=== PATIENT | female | born 1995 | race Caucasian/White ===

== ENCOUNTER 2018-06-12 00:55 | Outpatient (CLI) | payer SELFPAY ==
[2018-06-12 01:39] VITALS: BMI 30.7
--- NOTE | 2018-06-12 01:56 | NURSING ---
Dr Fox aware that pt came in w/ c/o regular contractions, rating 4/10, palpate moderate. Pt reports that she has an US done last night, confirming that baby is in breech position. A c section with dr rasmussen is scheduled for 06/13/18. Orders given to draw no care labs, send a UA, and give pt a 1000cc LR fluid bolus, then recheck vag exam and if unchanged ok to DC home.
--- NOTE | 2018-06-12 02:24 | NURSING ---
this is Gage Juan, their drivers number. pt does not have phone
[2018-06-12] MEDS: Lactated Ringers 1,000 ML 999 ML IV (02:25)
--- NOTE | 2018-06-12 02:33 | NURSING ---
NPC labs drawn on admission with IV start
[2018-06-12 02:50] LABS: Absolute Lymphocyte Count 1.74 X10^3/ul (0.83-4.51); Basophil# 0.03 X10^3/uL; Basophil% 0.4 % (0-1); Eosinophil# 0.05 X10^3/uL; Eosinophils% 0.7 % (0-5); Hemoglobin 11.3 g/dl (12.0-15.0); Lymphocyte # 1.74 X10^3/ul (4.0); Lymphocyte % 23.4 % (19-41); Mean Corp Hgb Conc 33.2 g/gl (32-36); Mean Corpuscular Hgb 27.6 pg (27.0-32.0); Mean Corpuscular Volume 82.9 fL (81-99); Mean Platelet Vol. 10.4 fl (6.2-12.0); Monocyte% 8.1 % (0-10); Neutrophil # 4.97 X10^3/uL (2.7-7.7); Neutrophil % 66.7 % (47-70); POSITIVE COUNT NO; POSITIVE DIFFERENTIAL NO; POSITIVE MORPHOLOGY NO; Platelet Count 153 K/mm3 (150-450); RBC Distribution Width SD 38.1 fl (35.1-43.9); White Blood Count 7.4 K/mm3 (4.4-11.0)
[2018-06-12 02:57] LABS: Color, Urine Yellow (Yellow); Glucose, Dipstick Normal (Normal); Ketone-Dipstick Negative (Negative); Leukocyte Esterase-Dipstick 500 /ul (Negative); Nitrite-Dipstick Negative (Negative); Occult Blood-Urine 50 /ul (Negative); Protein-Dipstick Negative (Negative); Specific Gravity, Urine 1.025 (1.002-1.030); Urine Bilirubin Dipstick Negative (Negative); Urine Clarity Cloudy (Clear); Urine Urobilinogen 1 mg/dl (Normal)
[2018-06-12 02:58] LABS: Squamous Epithelial Cells - UA 5-10 SEEN /hpf (5-10)
[2018-06-12 02:59] LABS: Bacteria 1+ /hpf (None Seen); Mucous, Urine 1+ /hpf (<or=2+); Red Blood Cells-Urine 0-5 SEEN /hpf (0-5); White Blood Cells 25-50 SEEN /hpf (0-5)
[2018-06-12 04:41] LABS: HIV - WCH Non-Reactive (Nonreactive)
[2018-06-12] MEDS: Nalbuphine 10 MG/ML Ampul IV (05:13)
--- NOTE | 2018-06-12 09:03 | OB.TRI.NOTE ---
- Problem List (1) Breech presentation Status: Acute Qualifiers: Fetus number: single or unspecified fetus Qualified Code(s): O32.1XX0 - Maternal care for breech presentation, not applicable or unspecified History of Present Illness Date of Service: 06/12/18 Was patient seen by the physician?: Yes Reason For Visit: R/O LABOR Date of Service: 06/12/18 Final SKYLAR: 06/14/18 Final SKYLAR Source: US <20 weeks Gestational age: 39 Weeks and 5 Days History of Present Illness: Complaints of contractions without signs of SROM. No bleeding. Good movement. Known breach presentation. Allergies No Known Allergies Allergy (Verified 06/12/18 02:31) Laboratory Studies: Laboratory Tests 06/12/18 06/12/18 06/12/18 Range/Units 02:25 02:25 02:25 WBC (4.4-11.0) K/mm3 RBC (4.2-5.4) M/mm3 Hgb (12.0-15.0) g/dl Hct (37-47) % MCV (81-99) fL MCH (27.0-32.0) pg MCHC (32-36) g/gl RDW (11.6-14.6) % RDW Differential (35.1-43.9) fl Plt Count (150-450) K/mm3 MPV (6.2-12.0) fl Immature Gran % (Auto) (0.0-0.9) % Neut % (Auto) (47-70) % Lymph % (Auto) (19-41) % [place] % (Auto) (0-10) % Eos % (Auto) (0-5) % Baso % (Auto) (0-1) % Absolute Neuts (auto) (2.0-7.7) X10^3/uL Absolute Lymphs (auto) (0.83-4.51) X10^3/ul Total Counted Urine Color (Yellow) Urine Clarity (Clear) Urine pH (5.0 - 8.0) Ur Specific [place] (1.002-1.030) Urine Protein (Negative) mg/dl Urine Glucose (UA) (Normal) mg/dl Urine Ketones (Negative) mg/dl Urine Occult Blood (Negative) /ul Urine Nitrite (Negative) Urine Bilirubin (Negative) mg/dL Urine Urobilinogen (Normal) mg/dl Ur Leukocyte Esterase (Negative) /ul Urine RBC (0-5) /hpf Urine WBC (0-5) /hpf Ur Squamous Epith Cells (5-10) /hpf Urine Bacteria (None Seen) /hpf Urine Mucus (<or=2+) /hpf HIV 1&2 Antibody Non-Reactive (Nonreactive) Rubella IgG Antibody 460.0 IU/mL Blood Type A NEGATIVE Antibody Screen NEGATIVE 06/12/18 06/12/18 Range/Units 02:25 02:25 WBC 7.4 (4.4-11.0) K/mm3 RBC 4.10 L (4.2-5.4) M/mm3 Hgb 11.3 L (12.0-15.0) g/dl Hct 34.0 L (37-47) % MCV 82.9 (81-99) fL MCH 27.6 (27.0-32.0) pg MCHC 33.2 (32-36) g/gl RDW 13.0 (11.6-14.6) % RDW Differential 38.1 (35.1-43.9) fl Plt Count 153 (150-450) K/mm3 MPV 10.4 (6.2-12.0) fl Immature Gran % (Auto) 0.700 (0.0-0.9) % Neut % (Auto) 66.7 (47-70) % Lymph % (Auto) 23.4 (19-41) % [place]aine % (Auto) 8.1 (0-10) % Eos % (Auto) 0.7 (0-5) % Baso % (Auto) 0.4 (0-1) % Absolute Neuts (auto) 5.0 (2.0-7.7) X10^3/uL Absolute Lymphs (auto) 1.74 (0.83-4.51) X10^3/ul Total Counted Not Reportable Urine Color Yellow (Yellow) Urine Clarity Cloudy (Clear) Urine pH 6.0 (5.0 - 8.0) Ur Specific [place] 1.025 (1.002-1.030) Urine Protein Negative (Negative) mg/dl Urine Glucose (UA) Normal (Normal) mg/dl Urine Ketones Negative (Negative) mg/dl Urine Occult Blood 50 H (Negative) /ul Urine Nitrite Negative (Negative) Urine Bilirubin Negative (Negative) mg/dL Urine Urobilinogen 1 H (Normal) mg/dl Ur Leukocyte Esterase 500 H (Negative) /ul Urine RBC 0-5 SEEN (0-5) /hpf Urine WBC 25-50 SEEN (0-5) /hpf Ur Squamous Epith Cells 5-10 SEEN (5-10) /hpf Urine Bacteria 1+ (None Seen) /hpf Urine Mucus 1+ (<or=2+) /hpf HIV 1&2 Antibody (Nonreactive) Rubella IgG Antibody IU/mL Blood Type Antibody Screen Physical Exam General: Alert, Oriented x3, Cooperative, No apparent distress Cardiovascular: Regular rate, Regular Rhythm Lungs: Clear to auscultation, Normal air movement Abdomen: Soft, Non Tender, Non-Distended, Gravid, Appropriate for Gestational Age Extremities:: No edema Neurological: Neuro grossly intact Estimated gestational size: Appropriate for gestational size Presentation: Breech Cervix Dilation (cm): 1 Station: -3 Effacement (%): 50 NST - FHR Rate Baby A Baseline: 130s Variability:: Moderate Accelerations:: 15 x 15 Decelerations:: None NST Reactive:: Yes, Appropriate for gestational age FHR Category:: Category I Uterine Activity:: irregular Impression/Plan Term breech presentation but not in active labor. Is scheduled for primary section tomorrow. Given is not in active labor will discharge home and will return tomorrow for planned delivery. Breech confirmed by US today with baby's vertex in right upper fundus. labs done today.
[2018-06-14 08:51] LABS: HEPATITIS B SURFACE AG Negative (Negative); Hep C Antibodies 0.1 s/co ratio (0.0-0.9)
[2018-06-16 23:52] LABS: Rapid Plasmin Reagin (RPR) NONREACTIVE (NONREACTIVE)
--- OUTSIDE RECORDS SUMMARY | 2018-09-14 12:43 | XMS RPT_ITS ---
:1995 Author Organization OHIP Care Team Providers Name Role Phone Ruddy, Antoni Attending Unavailable Marcanthony, Sepideh Admitting Unavailable Marcanthony, Sepideh Attending Unavailable Primay Care Physicia, No Primary Care Unavailable Marcanthony, Sepideh Admitting Unavailable Marcanthony, Sepideh Attending Unavailable Primay Care Physicia, No Primary Care Unavailable Marcanthony, Sepideh Consulting Unavailable Marcanthony, Sepideh Admitting Unavailable Nanda, Aubrie Attending Unavailable Primay Care Physicia, No Primary Care Unavailable Marcanthony, Sepideh Consulting Unavailable Marcanthony, Sepideh Admitting Unavailable Debord, Aubrie Attending Unavailable Primay Care Physicia, No Primary Care Unavailable Marcanthony, Sepideh Consulting Unavailable PROBLEMS PROBLEMS DATE TYPE CONDITION / CODE ATTENDING STATUS SOURCE 06/15/2018 Unknown G89.18 - Other acute Marcanthony, Active [place] postprocedural pain [facility] / G89.18(ICD-10) Hospital Repository PROCEDURES PROCEDURES No Procedure Records FoundRESULTS RESULTS DISCHARGE INSTRUCTION Observed: 06/15/2018 Status: F Source: CORSICANA 8:07 AM REPOSITORY [facility] Medical Records Department [address] [place] [address] Instructions for Home/Discharge Instructions 06/15/18 0806 MR#: [id number] Acct: [id number] Name: MARIA EUGENIA SEYMOUR Rep #: [id number] : 1995 23 From: Aubrie Vee WAISTLINE JOINER LOCKSTITCH-C PCP: Care Physician, No Primary Status: ADM IN Additional Instructions: If you experience any of the following, contact your healthcare provider. * Bleeding that soaks a pad every hour for 2 hours * Fever 100.4 or higher * Unrelieved incision or abdominal pain * Swelling, redness, discharge or bleeding from your incision or episiotomy site * Your incision begins to separate * Problems urinating (including inability to urinate or burning while urinating). * Visual changes * Severe headache * Flu-like symptoms * Pain or redness in one of both of your breasts * Pain, warmth, tenderness or swelling in your legs, especially the calf area * Frequent nausea and vomiting * Symptoms of depression or anxiety If you experience any of the following, call 911 or go to the nearest Emergency Room. * Chest pain * Problems breathing * Seizure activity * Partial or complete paralysis of a body part, slurred speech, weakness or drooping of the face, or a sudden inability to walk or hold your balance Allergies/Adverse Reactions: Allergies No Known Allergies Allergy (Verified 06/12/18 02:31) Medications to take at Discharge Vits [Prenatabs FA ] 1 tab PO DAILY 06/12/18 Naproxen [Naprosyn] 500 mg PO BID PRN PRN #60 tablet 06/15/18 Oxycodone HCl/Acetaminophen [Percocet 5/325] 1 - 2 tablet PO Q4H PRN PRN 3 Days #15 tablet 06/15/18 The following prescriptions were given: Oxycodone HCl/Acetaminophen [Percocet 5/325] 1 - 2 tablet PO Q4H PRN PRN 3 Days #15 tablet PRN Reason: Pain Naproxen [Naprosyn] 500 mg PO BID PRN PRN #60 tablet PRN Reason: Pain Follow-Up: Call to make an appointment with your doctor for an incision check in 1-2 weeks. You will also need a 6 week post- follow up appointment. Test results from this visit will be discussed in further detail at your follow-up appointment, if applicable. Primary Care Physician: Care Physician,No Primary [Primary Care Provider] - 06/15/18 08 <Electronically signed by Aubrie CARVAJAL> Date Aubrie Vee WAISTLINE JOINER LOCKSTITCH-C CC: No Primary Care Physician CBC-COMPLETE BLOOD CNT Collected: 06/14/2018 Status: F Source: NANDO NO DIFF 5:00 AM REPOSITORY Order Comment: Comments: Day #1 Reason for Laboratory Test TYPE CODE TESTS RESULT OUT OF RANGE REFERENCE UNITS LAB L100.1000 4.4-11.0 K/mm3 Normal WBC 7.9 LAB L100.1200 4.2-5.4 M/mm3 Low RBC 3.49 LAB L100.1300 12.0-15.0 g/dl Low HGB 9.5 LAB L100.1400 37-47 % Low HCT 29.2 LAB L100.1500 81-99 fL Normal MCV 83.7 LAB L100.1600 27.0-32.0 pg Normal MCH 27.2 LAB L100.1700 32-36 g/gl Normal MCHC 32.5 LAB L100.1810 11.6-14.6 % Normal RDW CV 13.5 LAB L100.1820 35.1-43.9 fl Normal RDW SD 41.0 LAB L100.1900 150-450 K/mm3 Low PLT 124 LAB L100.2000 6.2-12.0 fl Normal MPV 9.7 Performed By: #### L100.0500 #### [facility] [address] [place], [address] RHOGAM Collected: 06/13/2018 Status: F Source: NANDO 5:10 PM REPOSITORY TYPE CODE TESTS RESULT OUT OF REFERENCE UNITS RANGE LAB U100.2500 [id number] TRANSFUSED PRODUCT: Rho(D) Immune Globulin RhoGam COUNT: 1 Performed By: #### U100.2500 #### [facility] - refer to report for specific site RH NEGATIVE MOM Collected: 06/13/2018 Status: F Source: NANDO WORKUP 8:35 AM REPOSITORY Order Comment: Baby's Full Name Baby Boy Monisha Baby's Bracelet # [id number] Baby's MR # [id number] TYPE CODE TESTS RESULT OUT OF RANGE REFERENCE UNITS LAB B101.0425 A Normal MOM'S ABO NEGATIVE RH LAB B101.0450 Normal MOM'S ABS NEGATIVE LAB B101.0500 NEGATIVE Normal NEGATIVE SCREEN LAB B101.0950 A Normal BABY'S POSITIVE ABO RH LAB B101.1000 NEGATIVE Normal BABY'S NEGATIVE DESTINEE Performed By: #### B101.0300 #### [facility] [address] [place], [address] OPERATIVE REPORT Observed: 06/13/2018 Status: F Source: CORS[place] 4:23 AM REPOSITORY [facility] Medical Records Department [address] [place] [address] Operative Report 06/13/18 0420 MR#: [id number] Acct: [id number] Name: MARIA EUGENIA SEYMOUR Rep #: [id number] : 1995 23 From: Sepideh Trotter MD PCP: Care Physician, No Primary Status: ADM IN Location: [place] [address] Problem List (1) Breech presentation Status: Acute Qualifiers: Report of Operation Date of Procedure: 06/13/18 Pre-Operative Diagnosis: breech ial Post-Operative Diagnosis: same Surgery/Procedure Performed:: ltcs Description of Surgical Findings:: nl uterus infant complete breech human resources officer: Camille Bello Type of Anesthesia:: Spinal Special Medications: none Specimen's removed: male Drains: branham Estimated Blood Loss (mL): 700 Fluids Replaced: crystalloid Description of Procedure: The patient is a 23-year-old at 39 weeks 4 days presented for active labor and breech presentation decision for primary . Spinal anesthesia was placed without difficulty. Branham catheter was placed. The patient was placed in the dorsal supine position with leftward tilt. Patient was prepped and draped in the normal sterile fashion. Pfannenstiel skin incision was made with the scalpel and carried through to the underlying layer of fascia with the scalpel. Fascia was nicked in the midline and the incision extended laterally. The rectus bellies were dissected off superiorly and inferiorly with out complication both sharply and bluntly. The peritoneum was entered digitally. The incision was stretched and a low transverse uterine incision was made with the scalpel. The 's head was delivered atraumatically followed by the anterior and posterior shoulders without complication the rest of the infant delivered. The cord was clamped and cut and the was handed off to awaiting nurse. The placenta was delivered spontaneously immediately following and was noted to be intact and have a three-vessel cord. The uterus was exteriorized cleared of all clots and debris, and the incision was closed in a double layer closure using #1 Monocryl. The uterus was returned to the maternal abdomen and gutters were cleared of all clots and debris. The ovaries and fallopian tubes were noted to be within normal limits. The peritoneum was closed with 3-0 Monocryl in a running fashion. Fascia was closed with 0 PDS in a running fashion. Subcutaneous tissue was copiously irrigated and the skin was closed with 3-0 Monocryl in a subcuticular fashion. Mepilex dressing was applied without complication. Patient was taken to recovery in stable condition. Grafts/Implants Used: none - Complications none - Admit VTE Documentation VTE Present on Admission: No VTE Mechan Device Prophylaxis: SCD's VTE Pharm Prophylaxis ordered?: No 06/13/18 0423 <Electronically signed by Sepideh Trotter MD> Date Sepideh Trotter MD CC: No Primary Care Physician; Sepideh Trotter MD Signed HISTORY AND PHYSICAL Observed: 06/13/2018 Status: F Source: CORS[place]NA EXAM 4:00 AM REPOSITORY [facility] Medical Records Department [address] [place] [address] History and Physical 06/13/18 0358 MR#: [id number] Acct: [id number] Name: MARIA EUGENIA SEYMOUR Rep #: [id number] : 1995 23 From: Sepideh Trotter MD PCP: Care Physician, No Primary Status: ADM IN Y Location: LR326-2 - Problem List (1) Breech presentation Status: Acute Qualifiers: History Date of Admission: 06/13/18 Final SKYLAR: 06/15/18 Final SKYLAR Source: US <20 weeks Gestational age: 39 Weeks and 5 Days History of this : This is a 23 year-old, at 39 weeks gestational age presents IAL breech. she denies any lof admits good fm but had some vb and regular ctx. she has received care by a ground layer in the community- Flor Gates. She denies any complications to the . Allergies No Known Allergies Allergy (Verified 06/12/18 02:31) Home Medications: Home Medications Vits [Prenatabs FA ] 1 tab PO DAILY 06/12/18 Smoking Status: Former smoker Alcohol: None Number of Fetus(es): 1 Heart Tracins History Past Pregnancies: Past Pregnancies Delivery Name GA/Weeks Outcome Route WeiInfant GeLabky LenAnesthesiDelivery Provider FOB Date t [facility] a Location Labs: Course Did the patient receive No care? Labs Blood Type: A RH: NEGATIVE Current Obstetrical History Gestational Diabetes No Incompetent Cervix No Infertility No IUGR No Macrosomia No Hypertension/Pre-eclampsia No Placenta Previa/Abruption No PTL/PROM No Uterine anomaly No Oligohydramnios No Polyhydramnios No Multiple gestation No Past Medical History Asthma No Diabetes No Hypertension No Heart disease No Mitral valve prolapse No Neurologic/Seizure disorder/ No Migraines Kidney disease No Liver disease No Varicosities No Clotting disorders/Hx of DVT No Thyroid Dysfunction No Other medical diseases No Psychiatric disorders No Major trauma No Abnormal PAP smear No Sleep apnea No Mammogram in the last 2 years No Social History Marital Status: Alleged father Pierre Hx Smoking Yes Smoking Status Former smoker How long have you used patient denies substances (years)? Expected Infant Delivery Method: Primary Section, PRAKASH Section Review of Systems Constitutional: Denies: Fever, Malaise Eyes: Denies: Blurred vision, Vision Change HEENT: Denies: Head Aches, Visual Changes Cardiovascular: Denies: Chest Pain, Palpitations Respiratory: Denies: Cough, Shortness of Breath, Wheezing Gastrointestinal: Denies: Abdominal Pain, Diarrhea, Nausea, Vomiting Genitourinary: Denies: Dysuria, Hematuria Musculoskeletal: Denies: Joint Pain, Muscle pain Skin: Denies: Lesions, Rash Neurological: Denies: Blurred vision, Focal weakness, Headaches Psychiatric: Denies: Anxiety, Depression Endocrine: Denies: Heat/ Cold Intolerance Hematologic/ Lymphatic: Denies: Easy Bruising, Easy Bleeding Physical Exam General: Alert, Cooperative, No apparent distress HEENT: Atraumatic, Normocephalic. Negative for: Thyromegaly, Lymphadenopathy Cardiovascular: Regular rate Lungs: Normal air movement Abdomen: Soft, Non Tender, Gravid Neurological: Deep Tendon Reflexes 2+/4 and Symmetrical, Neuro grossly intact. Negative for: Clonus MATERIAL HANDLER 1ST SHIFT: Normal external genitalia. Negative for: Vulvar lesions Estimated gestational size: Appropriate for gestational size Presentation: Breech Cervix Dilation (cm): 4 Station: 0 Effacement (%): 90 Assessment/Plan All Active Problems Breech presentation (Acute) This is a 23 year-old, , at 39 weeks gestational age presents IAL breech presentation plan for LTCS discussed surgical risks including risks of anesthesia, infection, bleeding, injury to bowel, bladder or blood vessels, and patient wishes to proceed with surgery. 06/13/18 0400 <Electronically signed by Sepideh Trotter MD> Date Sepideh Trotter MD Cosigner Signature: Date (if applicable) CC: No Primary Care Physician; Sepideh Trotter MD Signed CBC W/DIFF, AUTOMATED Collected: 06/12/2018 Status: F Source: NANDO 2:25 AM REPOSITORY TYPE CODE TESTS RESULT OUT OF RANGE REFERENCE UNITS LAB L100.1000 4.4-11.0 K/mm3 Normal WBC 7.4 LAB L100.1200 4.2-5.4 M/mm3 Low RBC 4.10 LAB L100.1300 12.0-15.0 g/dl Low HGB 11.3 LAB L100.1400 37-47 % Low HCT 34.0 LAB L100.1500 81-99 fL Normal MCV 82.9 LAB L100.1600 27.0-32.0 pg Normal MCH 27.6 LAB L100.1700 32-36 g/gl Normal MCHC 33.2 LAB L100.1810 11.6-14.6 % Normal RDW CV 13.0 LAB L100.1820 35.1-43.9 fl Normal RDW SD 38.1 LAB L100.1900 150-450 K/mm3 Normal PLT 153 LAB L100.2000 6.2-12.0 fl Normal MPV 10.4 LAB L100.2100 47-70 % Normal NEUT% 66.7 LAB L100.2200 19-41 % Normal LY% 23.4 LAB L100.2300 0-10 % Normal MONO% 8.1 LAB L100.2400 0-5 % Normal EO% 0.7 LAB L100.2500 0-1 % Normal BASO% 0.4 LAB L100.2550 0.0-0.9 % Normal IM GRAN % 0.700 Result Comment: IG% - Immature Granulocytes (promyelocytes, myelocytes and metamyelocytes) > 1% indicates that a LEFT SHIFT is Present. LAB L100.2620 2.0-7.7 X10 3/uL Normal Absolute Neut 5.0 LAB L100.2720 0.83-4.51 X10 3/ul Normal Absolute Lymph 1.74 Performed By: #### L100.0100 #### [facility] [address] [place], [address] URINALYSIS, COMPLETE Collected: 06/12/2018 Status: F Source: [place]ORS[place] 2:25 AM REPOSITORY Order Comment: How was Urine Obtained? CLEAN CATCH TYPE CODE TESTS RESULT OUT OF RANGE REFERENCE UNITS LAB L400.3000 Yellow COLOR Normal Yellow LAB L400.3050 Clear Normal CLARITY Cloudy LAB L400.3200 Normal mg/dl Normal GLUCOSE, UR Normal LAB L400.3300 Negative mg/dL Normal BILIRUBIN URINE Negative LAB L400.3400 Negative mg/dl Normal KETONE UR Negative LAB L400.3465 1.002-1.030 Normal SP.GR. DIPSTX 1.025 LAB L400.3550 5.0 - 8.0 pH UR Normal 6.0 LAB L400.3600 Negative mg/dl PROT Normal DIPSTX Negative LAB L400.3700 Normal mg/dl High 1 UROBILI LAB L400.3750 Negative Normal NITRITE UR Negative LAB L400.3780 Negative /ul High 50 OCCULT BLOOD-UR LAB L400.3800 Negative /ul High LEUK ESTERASE 500 LAB L400.4050 0-5 /hpf WBC Normal 25-50 SEEN LAB L400.4100 0-5 /hpf Normal RBC-UA 0-5 SEEN LAB L400.4150 5-10 /hpf SQUAM Normal EPI 5-10 SEEN LAB L400.4300 None Seen /hpf 1+ Normal BACTERIA LAB L400.4350 <or=2+ /hpf 1+ Normal MUCUS, URINE Performed By: #### L400.0001, L509.4000 #### [facility] [address] [place], [address] RUBELLA IGG Collected: 06/12/2018 Status: F Source: [place] 2:25 AM REPOSITORY TYPE CODE TESTS RESULT OUT OF RANGE REFERENCE UNITS LAB L509.4000 IU/mL Normal Rubella IgG 460.0 Result Comment: Antibody results Interpretation of Immune Status < 5 IU/ml Presumed Non-immune 5 - < 10 IU/ml Equivocal > or = 10 IU/ml Presumed Immune Performed By: #### L400.0001, L509.4000 #### [facility]. [facility] [id number] HIV - [facility] Collected: 06/12/2018 Status: F Source: [place] 2:25 AM REPOSITORY TYPE CODE TESTS RESULT OUT OF RANGE REFERENCE UNITS LAB L3890.6005 Nonreactive Normal HIV - [facility] Non-Reactive Performed By: #### L3890.6005 #### [facility]. [place], [place], [id number] TYPE AND SCREEN Collected: 06/12/2018 Status: F Source: [place] 2:25 AM REPOSITORY Order Comment: Reason for Type AND Screen/Red Cells: ROUTINE TYPE CODE TESTS RESULT OUT OF RANGE REFERENCE UNITS LAB B10.0800 A Normal BLOOD TYPE GEL NEGATIVE LAB B100.4000 Normal Antibody NEGATIVE Screen Performed By: #### B101.7450 #### [facility] [address] [facility] [id number] HEPATITIS B SURFACE Collected: 06/12/2018 Status: F Source: [place] AG 2:25 AM REPOSITORY TYPE CODE TESTS RESULT OUT OF RANGE REFERENCE UNITS LAB L3100.0400 Negative Normal HB Negative SURF AG Result Comment: Performed at: - [facility] [id number] Staging Technician: John Stacy PhD, Phone: [phone] Performed By: #### L3100.0390, L3100.0625 #### [facility] (refer to report for specific site) refer to report for address and phone number HEPATITIS C ANTIBODIES Collected: 06/12/2018 Status: F Source: [place]ORS[place] 2:25 AM REPOSITORY TYPE CODE TESTS RESULT OUT OF RANGE REFERENCE UNITS LAB L3100.0650 0.0-0.9 s/co ratio Normal HEP C AB 0.1 Result Comment: Negative: < 0.8 Indeterminate: 0.8 - 0.9 Positive: > 0.9 The CDC recommends that a positive HCV antibody result be followed up with a HCV Nucleic Acid Amplification test (031464). Performed By: #### L3100.0390, L3100.0625 #### [facility] (refer to report for specific site) refer to report for address and phone number RAPID PLASMIN REAGIN Collected: 06/12/2018 Status: F Source: CORS[place]NA (RPR) 2:25 AM REPOSITORY TYPE CODE TESTS RESULT OUT OF REFERENCE UNITS RANGE LAB L700.5000 NONREACTIVE NONREACTIVE Normal RPR Performed By: #### L700.5000 #### [facility] [address] [place], [address] ALLERGIES ALLERGIES DATE TYPE / CODE NAME / CODE REACTION SEVERITY SOURCE 06/12/2018 Drug No Known Unknown [facility] Allergy/4160 Allergies/F00 Hospital 29427(SNOMED 9071968(RXNOR Repository CT) M) ENCOUNTERS ENCOUNTERS ADMIT/DISCHARGE ACCOUNT ADMITTING ENCOUNTER LOCATION SOURCE NUMBER CLASS 06/13/2018/ [id number] Rose Marie, Inpatient [place] 8 3 Sepideh Encounter [facility] ing:WPRoom: Repository [id number]: 1 06/13/2018 [id number] Rose Marie Ambulatory BMSBuilding:B [place] 1 Sepideh MS.CF.[facility] Repository 06/13/2018 [id number] Rose Marie Ambulatory BMSBuilding:B [place] 5 Sep[place] MS.CF.[facility] Repository 06/13/2018 [id number] Marcjungony, Ambulatory BMSBuilding:B [place] 8 Sep[place]h MS.CF.[facility] Repository 06/12/2018/ [id number] Ambulatory [place] 8 3 [facility] ing:WPOUTRoom Repository : [id number] PAYERS PAYERS ENCOUNTER GUARANTOR PAYER SUBSCRIBER SOURCE 06/13/2018 MARIA EUGENIA W Primary Insurance:[facility] MARIA EUGENIA [place] Nando [id number] SR PACKAGE PLANPolicy GINGERICHDOB: [facility] Number: [id number] [facility] , [place] [address]Eyj: . [id number] Repository (HP) Date:2018-06-13 06/13/2018 Secondary NOT GIVENUNK [place] Insurance:SELF PAY [facility], [place]) Number: Effective Repository Date:2018-06-13 06/13/2018 MARIA EUGENIA Marlena Primary Insurance:[facility] MARIA EUGENIA [place] [id number] SR PACKAGE PLANPolicy GINGERICHDOB: [facility] [address] Number: [id number] [facility] , [place] [address]Nqp: . [id number] Repository (HP) Date:2018-06-13 06/13/2018 Secondary NOT GIVENUNK [place] Insurance:SELF PAY [facility], [place] Number: Effective Repository Date:2018-06-13 06/13/2018 MARIA EUGENIA Mendiola Primary Insurance:[facility] MARIA EUGENIA [place] [id number] SR PACKAGE PLANPolicy GINGERICHDOB: [facility] [address] Number: Effective [id number], [place] [address]Cqy: 0 Date:2018-06-13 Repository (HP) 06/13/2018 Secondary NOT GIVENUNK Nando Insurance:SELF PAY [facility] ([place], [place] Number: Effective Repository Date:2018-06-13 06/13/2018 MARIA EUGENIA Mendiola Primary Insurance:[facility] MARIA EUGENIA [place] [id number] SR PACKAGE PLANPolicy GINGERICHDOB: [facility] [address] Number: [id number] [place], [place] [address]Dmx: . [id number] Repository (HP) Date:2018-06-13 06/13/2018 Secondary NOT GIVENUNK Nando Insurance:SELF PAY [facility] ([place], [place]) Number: Effective Repository Date:2018-06-13 06/12/2018 MARIA EUGENIA Mendiola Primary Insurance:[facility] MARIA EUGENIA [place] Nando [id number] SR PACKAGE PLANPolicy GINGERICHDOB: [place] [id number] Number: Effective [id number] [place], [place] [address]Qjz: 0 Date:2018-06-12 Repository () 06/12/2018 Secondary NOT GIVENUNK Nando Insurance:SELF PAY [facility] ([place], [place]) Number: Effective Repository Date:2018-06-12
== END 2018-06-12 10:25 | disposition home or self-care (01) ==
LOC: WPOUT 01:08 → WP 01:09
PROVIDERS: Visit Provider Obstetrics & Gynecology
DX: O32.1XX0 Maternal care for breech presentation, not applicable or unspecified (principal); Z3A.39 39 weeks gestation of pregnancy
CPT/HCPCS: 96361; 96374; 36415; 59025; 59050; 76815; 81001; 85025; 86592; 86703; 86762; 86803; 86850; 86900; 87340; 99218; J7120; G0378

== ENCOUNTER 2018-06-13 01:25 | Inpatient (IN) | payer SELFPAY ==
[2018-06-12 01:39] VITALS: BMI 30.7
[2018-06-13] VITALS (23 sets, daily range): BP systolic 97–131; BP diastolic 44–81; PULSE 82–109; RESP 12–20; TEMP 36.1–36.9; O2SAT 97–100; BMI 30.7
[2018-06-13] MEDS: Lactated Ringers 1,000 ML 999 ML IV (02:10)
[2018-06-13] MEDS: Lactated Ringers 1,000 ML 150 ML IV (02:41)
[2018-06-13] MEDS: Sodium Citrate/Citric Acid 30 ML UDC PO (02:42)
[2018-06-13] MEDS: Cefazolin 2 GM in 0.9% Normal Saline 100 ML IV (02:50)
[2018-06-13] MEDS: Oxytocin 30 units/NS 500 ml 30 UNITS/500 ML IV.SOLN 167 UNITS IV (03:10)
--- NOTE | 2018-06-13 03:58 | PCM.HP.OB ---
- Problem List (1) Breech presentation Status: Acute Qualifiers: History Date of Admission: 06/13/18 Final SKYLAR: 06/15/18 Final SKYLAR Source: US <20 weeks Gestational age: 39 Weeks and 5 Days History of this : This is a 23 year-old, at 39 weeks gestational age presents IAL breech. she denies any lof admits good fm but had some vb and regular ctx. she has received care by a signs and displays sales representative in the community- Flor Gates. She denies any complications to the . Allergies No Known Allergies Allergy (Verified 06/12/18 02:31) Home Medications: Home Medications Vits [Prenatabs FA ] 1 tab PO DAILY 06/12/18 Smoking Status: Former smoker Alcohol: None Number of Fetus(es): 1 Heart Tracins History Past Pregnancies: Past Pregnancies Delivery Date Name GA/Weeks Outcome Route Weight Infant Gender Labor Length Anesthesia Delivery Location Provider FOB Labs: Course Did the patient receive No care? 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 rhogam Comments: Current Obstetrical History Gestational Diabetes No Incompetent Cervix No Infertility No IUGR No Macrosomia No Hypertension/Pre-eclampsia No Placenta Previa/Abruption No PTL/PROM No Uterine anomaly No Oligohydramnios No Polyhydramnios No Multiple gestation No Past Medical History Asthma No Diabetes No Hypertension No Heart disease No Mitral valve prolapse No Neurologic/Seizure disorder/ No Migraines Kidney disease No Liver disease No Varicosities No Clotting disorders/Hx of DVT No Thyroid Dysfunction No Other medical diseases No Psychiatric disorders No Major trauma No Abnormal PAP smear No Sleep apnea No Mammogram in the last 2 years No Social History Marital Status: Alleged father Pierre Hx Smoking Yes Smoking Status Former smoker How long have you used patient denies substances (years)? Expected Infant Delivery Method: Primary Section, PRAKASH Section Review of Systems Constitutional: Denies: Fever, Malaise Eyes: Denies: Blurred vision, Vision Change HEENT: Denies: Head Aches, Visual Changes Cardiovascular: Denies: Chest Pain, Palpitations Respiratory: Denies: Cough, Shortness of Breath, Wheezing Gastrointestinal: Denies: Abdominal Pain, Diarrhea, Nausea, Vomiting Genitourinary: Denies: Dysuria, Hematuria Musculoskeletal: Denies: Joint Pain, Muscle pain Skin: Denies: Lesions, Rash Neurological: Denies: Blurred vision, Focal weakness, Headaches Psychiatric: Denies: Anxiety, Depression Endocrine: Denies: Heat/ Cold Intolerance Hematologic/ Lymphatic: Denies: Easy Bruising, Easy Bleeding Physical Exam General: Alert, Cooperative, No apparent distress HEENT: Atraumatic, Normocephalic. Negative for: Thyromegaly, Lymphadenopathy Cardiovascular: Regular rate Lungs: Normal air movement Abdomen: Soft, Non Tender, Gravid Neurological: Deep Tendon Reflexes 2+/4 and Symmetrical, Neuro grossly intact. 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 Negative for: Vulvar lesions Estimated gestational size: Appropriate for gestational size Presentation: Breech Cervix Dilation (cm): 4 Station: 0 Effacement (%): 90 Assessment/Plan All Active Problems Breech presentation (Acute) This is a 23 year-old, , at 39 weeks gestational age presents IAL breech presentation plan for LTCS discussed surgical risks including risks of anesthesia, infection, bleeding, injury to bowel, bladder or blood vessels, and patient wishes to proceed with surgery.
--- NOTE | 2018-06-13 04:20 | PCM.OPRPT ---
Problem List (1) Breech presentation Status: Acute Qualifiers: Report of Operation Date of Procedure: 06/13/18 Pre-Operative Diagnosis: breech ial Post-Operative Diagnosis: same Surgery/Procedure Performed:: ltcs Description of Surgical Findings:: nl uterus complete breech lifestyle director: Camille Bello Type of Anesthesia:: Spinal Special Medications: none Specimen's removed: male infant Drains: branham Estimated Blood Loss (mL): 700 Fluids Replaced: crystalloid Description of Procedure: The patient is a 23-year-old at 39 weeks 4 days presented for active labor and breech presentation decision for primary . Spinal anesthesia was placed without difficulty. Branham catheter was placed. The patient was placed in the dorsal supine position with leftward tilt. Patient was prepped and draped in the normal sterile fashion. Pfannenstiel skin incision was made with the scalpel and carried through to the underlying layer of fascia with the scalpel. Fascia was nicked in the midline and the incision extended laterally. The rectus bellies were dissected off superiorly and inferiorly with out complication both sharply and bluntly. The peritoneum was entered digitally. The incision was stretched and a low transverse uterine incision was made with the scalpel. The 's head was delivered atraumatically followed by the anterior and posterior shoulders without complication the rest of the delivered. The cord was clamped and cut and the was handed off to awaiting nurse. The placenta was delivered spontaneously immediately following and was noted to be intact and have a three-vessel cord. The uterus was exteriorized cleared of all clots and debris, and the incision was closed in a double layer closure using #1 Monocryl. The uterus was returned to the maternal abdomen and gutters were cleared of all clots and debris. The ovaries and fallopian tubes were noted to be within normal limits. The peritoneum was closed with 3-0 Monocryl in a running fashion. Fascia was closed with 0 PDS in a running fashion. Subcutaneous tissue was copiously irrigated and the skin was closed with 3-0 Monocryl in a subcuticular fashion. Mepilex dressing was applied without complication. Patient was taken to recovery in stable condition. Grafts/Implants Used: none - Complications none - Admit VTE Documentation VTE Present on Admission: No VTE Mechan Device Prophylaxis: SCD's VTE Pharm Prophylaxis ordered?: No
--- NOTE | 2018-06-13 04:23 | OP.PCM_ITS ---
Problem List (1) Breech presentation Status: Acute Qualifiers: Report of Operation Date of Procedure: 06/13/18 Pre-Operative Diagnosis: breech ial Post-Operative Diagnosis: same Surgery/Procedure Performed:: ltcs Description of Surgical Findings:: nl uterus complete breech launch commander harbor police: Camille Bello Type of Anesthesia:: Spinal Special Medications: none Specimen's removed: male infant Drains: branham Estimated Blood Loss (mL): 700 Fluids Replaced: crystalloid Description of Procedure: The patient is a 23-year-old at 39 weeks 4 days presented for active labor and breech presentation decision for primary . Spinal anesthesia was placed without difficulty. Branham catheter was placed. The patient was placed in the dorsal supine position with leftward tilt. Patient was prepped and draped in the normal sterile fashion. Pfannenstiel skin incision was made with the scalpel and carried through to the underlying layer of fascia with the scalpel. Fascia was nicked in the midline and the incision extended laterally. The rectus bellies were dissected off superiorly and inferiorly with out complication both sharply and bluntly. The peritoneum was entered digitally. The incision was stretched and a low transverse uterine incision was made with the scalpel. The 's head was delivered atraumatically followed by the a nterior and posterior shoulders without complication the rest of the infant delivered. The cord was clamped and cut and the infant was handed off to awaiting nurse. The placenta was delivered spontaneously immediately following and was noted to be intact and have a three-vessel cord. The uterus was exteriorized cleared of all clots and debris, and the incision was closed in a double layer closure using #1 Monocryl. The uterus was returned to the maternal abdomen and gutters were cleared of all clots and debris. The ovaries and fallopian tubes were noted to be within normal limits. The peritoneum was closed with 3-0 Monocryl in a running fashion. Fascia was closed with 0 PDS in a running fashion. Subcutaneous tissue was copiously irrigated and the skin was closed with 3-0 Monocryl in a subcuticular fashion. Mepilex dressing was applied without complication. Patient was taken to recovery in stable condition. Grafts/Implants Used: none - Complications none - Admit VTE Documentation VTE Present on Admission: No VTE Mechan Device Prophylaxis: SCD's VTE Pharm Prophylaxis ordered?: No
[2018-06-13] MEDS: 0.9% Saline Lock 10 ML Syringe IV ×2 (09:20→21:40)
[2018-06-13] MEDS: Ketorolac 30 MG/ML Syringe IV ×3 (09:20→21:40)
[2018-06-13] MEDS: Prenatal Vits Tablet 1 TABLET PO (09:20)
[2018-06-13] MEDS: Lactated Ringers 1,000 ML 100 ML IV ×2 (13:08→21:40)
--- NOTE | 2018-06-13 15:31 | CPS ---
pt on phone, nursing will start
[2018-06-13] MEDS: DiphenhydrAMINE 25 MG Capsule PO (21:53)
[2018-06-14 00:30] VITALS: BP 114/58; PULSE 83; RESP 16; TEMP 36.3; O2SAT 99
[2018-06-14 02:00] VITALS: PULSE 102; RESP 16; O2SAT 97
[2018-06-14] MEDS: DiphenhydrAMINE 25 MG Capsule PO (03:44)
[2018-06-14] MEDS: 0.9% Saline Lock 10 ML Syringe IV ×4 (03:44→20:47)
[2018-06-14] MEDS: Ketorolac 30 MG/ML Syringe IV ×4 (03:44→20:47)
[2018-06-14 03:46] VITALS: BP 105/61; PULSE 81; RESP 18; TEMP 36.8; O2SAT 98
[2018-06-14 05:35] LABS: Hematocrit 29.2 % (37-47); Hemoglobin 9.5 g/dl (12.0-15.0); Mean Corp Hgb Conc 32.5 g/gl (32-36); Mean Corpuscular Hgb 27.2 pg (27.0-32.0); Mean Corpuscular Volume 83.7 fL (81-99); Mean Platelet Vol. 9.7 fl (6.2-12.0); Platelet Count 124 K/mm3 (150-450); RBC Distribution Width CV 13.5 % (11.6-14.6); Red Blood Count 3.49 M/mm3 (4.2-5.4); Scan Indicated on CBC? Y/N NO; White Blood Count 7.9 K/mm3 (4.4-11.0)
--- NOTE | 2018-06-14 07:42 | PCM.PN.OB ---
Subjective: Doing well. No CP, SOB. - Physical Exam General: Oriented x3 Abdomen: Soft, Non-Distended, - - Dressing dry and intact. FF below U. Minimal tenderness Vital Signs Temp Pulse Resp BP Pulse Ox 98.3 F 81 18 105/61 98 06/14/18 03:46 06/14/18 03:46 06/14/18 03:46 06/14/18 03:46 06/14/18 03:46 Oxygen Delivery Method Room Air Weight: 185 lb Body Mass Index (BMI) 30.7 Intake and Output for Last 24 Hours 06/12/18 06/13/18 06/14/18 23:59 23:59 23:59 Intake Total 1091 / 1091 1323 / 1323 Output Total 2900 / 2900 1450 / 1450 Balance -1809 / -1809 -127 / -127 Laboratory Tests Past 24 Hrs 06/13/18 06/14/18 08:35 05:00 WBC 7.9 RBC 3.49 L Hgb 9.5 L Hct 29.2 L MCV 83.7 MCH 27.2 MCHC 32.5 RDW 13.5 RDW Differential 41.0 Plt Count 124 L MPV 9.7 Screen NEGATIVE Baby's Blood Type A POSITIVE Baby's [place] NEGATIVE Medical Necessity - Tobacco Use Smoking Status: Former smoker Assessment/Plan All Active Problems Breech presentation (Acute) PLTCS Breech POD#1: Routine care. Pain controlled. .
[2018-06-14] MEDS: Prenatal Vits Tablet 1 TABLET PO (09:08)
[2018-06-14 13:30] VITALS: BP 111/56; PULSE 97; RESP 18; TEMP 36.7
[2018-06-14 19:44] VITALS: BP 110/60; PULSE 98; RESP 16; TEMP 36.8; O2SAT 99
[2018-06-15 02:00] VITALS: BP 113/62; PULSE 84; RESP 17; TEMP 37; O2SAT 97
--- NOTE | 2018-06-15 08:03 | PCM.PN.OB ---
Subjective: NO CP, LOF. Doing well. Plans home today - Physical Exam General: Alert, Oriented x3 Abdomen: Soft, Non-Distended, - - Dressing dry and intact. Minimal tenderness. FF below U Vital Signs Temp Pulse Resp BP Pulse Ox 98.6 F 84 17 113/62 97 06/15/18 02:00 06/15/18 02:00 06/15/18 02:00 06/15/18 02:00 06/15/18 02:00 Oxygen Delivery Method Room Air Weight: 185 lb Body Mass Index (BMI) 30.7 Intake and Output for Last 24 Hours 06/13/18 06/14/18 06/15/18 23:59 23:59 23:59 Intake Total 1091 / 1091 1323 / 1323 Output Total 2900 / 2900 1950 / 1950 Balance -1809 / -1809 -627 / -627 Medical Necessity - Tobacco Use Smoking Status: Former smoker Assessment/Plan All Active Problems Breech presentation (Acute) LTPCS breech POD#2: Routine care. . Pain controlled. Home today.
[2018-06-15] MEDS: Naproxen 250 MG Tablet PO (08:06)
[2018-06-15] MEDS: Senna/Docusate Sodium 1 Tablet PO (08:06)
[2018-06-15] MEDS: Prenatal Vits Tablet 1 TABLET PO (08:06)
--- NOTE | 2018-06-15 08:06 | PCM.DCCSEC ---
Additional Instructions: If you experience any of the following, contact your healthcare provider. Bleeding that soaks a pad every hour for 2 hours Fever 100.4 or higher Unrelieved incision or abdominal pain Swelling, redness, discharge or bleeding from your incision or episiotomy site Your incision begins to separate Problems urinating (including inability to urinate or burning while urinating). Visual changes Severe headache Flu-like symptoms Pain or redness in one of both of your breasts Pain, warmth, tenderness or swelling in your legs, especially the calf area Frequent nausea and vomiting Symptoms of depression or anxiety If you experience any of the following, call 911 or go to the nearest Emergency Room. Chest pain Problems breathing Seizure activity Partial or complete paralysis of a body part, slurred speech, weakness or drooping of the face, or a sudden inability to walk or hold your balance Allergies/Adverse Reactions: Allergies No Known Allergies Allergy (Verified 06/12/18 02:31) Medications to take at Discharge Vits [Prenatabs FA ] 1 tab PO DAILY 06/12/18 Naproxen [Naprosyn] 500 mg PO BID PRN PRN #60 tablet 06/15/18 Oxycodone HCl/Acetaminophen [Percocet 5/325] 1 - 2 tablet PO Q4H PRN PRN 3 Days #15 tablet 06/15/18 The following prescriptions were given: Oxycodone HCl/Acetaminophen [Percocet 5/325] 1 - 2 tablet PO Q4H PRN PRN 3 Days #15 tablet PRN Reason: Pain Naproxen [Naprosyn] 500 mg PO BID PRN PRN #60 tablet PRN Reason: Pain Follow-Up: Call to make an appointment with your doctor for an incision check in 1-2 weeks. You will also need a 6 week post- follow up appointment. Test results from this visit will be discussed in further detail at your follow-up appointment, if applicable. Primary Care Physician: Care Physician,No Primary [Primary Care Provider] -
--- NOTE | 2018-06-15 08:07 | DCINST_ITS ---
Additional Instructions: If you experience any of the following, contact your healthcare provider. * Bleeding that soaks a pad every hour for 2 hours * Fever 100.4 or higher * Unrelieved incision or abdominal pain * Swelling, redness, discharge or bleeding from your incision or episiotomy site * Your incision begins to separate * Problems urinating (including inability to urinate or burning while urinating). * Visual changes * Severe headache * Flu-like symptoms * Pain or redness in one of both of your breasts * Pain, warmth, tenderness or swelling in your legs, especially the calf area * Frequent nausea and vomiting * Symptoms of depression or anxiety If you experience any of the following, call 911 or go to the nearest Emergency Room. * Chest pain * Problems breathing * Seizure activity * Partial or complete paralysis of a body part, slurred speech, weakness or drooping of the face, or a sudden inability to walk or hold your balance Allergies/Adverse Reactions: Allergies No Known Allergies Allergy (Verified 06/12/18 02:31) Medications to take at Discharge Vits [Prenatabs FA ] 1 tab PO DAILY 06/12/18 Naproxen [Naprosyn] 500 mg PO BID PRN PRN #60 tablet 06/15/18 Oxycodone HCl/Acetaminophen [Percocet 5/325] 1 - 2 tablet PO Q4H PRN PRN 3 Days #15 tablet 06/15/18 The following prescriptions were given: Oxycodone HCl/Acetaminophen [Percocet 5/325] 1 - 2 tablet PO Q4H PRN PRN 3 Days #15 tablet PRN Reason: Pain Naproxen [Naprosyn] 500 mg PO BID PRN PRN #60 tablet PRN Reason: Pain Follow-Up: Call to make an appointment with your doctor for an incision check in 1-2 weeks. You will also need a 6 week post- follow up appointment. Test results from this visit will be discussed in further detail at your follow- up appointment, if applicable. Primary Care Physician: Care Physician,No Primary [Primary Care Provider] -
[2018-06-15 08:15] VITALS: BP 117/58; PULSE 91; RESP 20; TEMP 36.7; O2SAT 97
--- OUTSIDE RECORDS SUMMARY | 2018-09-14 14:16 | XMS RPT_ITS ---
[...] Sepideh Consulting Unavailable Marcanthony, Sepideh Admitting Unavailable [place], Aubrie Attending Unavailable Primay Care Physicia, No Primary Care Unavailable Marcanthony, Sepideh Consulting Unavailable PROBLEMS PROBLEMS DATE TYPE CONDITION / CODE ATTENDING STATUS SOURCE 06/15/2018 Unknown G89.18 - Other acute Marcanthony, Active Romance postprocedural pain [facility] / G89.18(ICD-10) Hospital Repository PROCEDURES PROCEDURES No Procedure Records FoundRESULTS RESULTS DISCHARGE INSTRUCTION Observed: 06/15/2018 Status: F Source: JEANNETTE 8:07 AM [facility] [place] [facility] Medical Records Department [address] [place] [address] Instructions for Home/Discharge Instructions 06/15/18 0806 MR#: [id number] Acct: [id number] Name: MARIA EUGENIA SEYMOUR Rep #: [id number] : 1995 23 From: Aubrie Vee SPLUNK ARCHITECT-C PCP: Care Physician, No Primary Status: ADM [...] signed by Aubrie CARVAJAL> Date Aubrie Vee SPLUNK ARCHITECT-C CC: No Primary Care Physician CBC-COMPLETE BLOOD CNT Collected: 06/14/2018 Status: F Source: NANDO NO DIFF 5:00 AM [facility] [place] [facility] Order Comment: Comments: Day #1 Reason [...] MPV 9.7 Performed By: #### L100.0500 #### [facility] [address] [place], [address] RHOGAM Collected: 06/13/2018 Status: F Source: NANDO 5:10 PM [facility] [place] [facility] TYPE CODE TESTS RESULT OUT OF REFERENCE UNITS RANGE LAB U100.2500 [id number] TRANSFUSED PRODUCT: Rho(D) Immune Globulin RhoGam COUNT: 1 Performed By: #### U100.2500 #### [facility] - refer to report for specific site RH NEGATIVE MOM Collected: 06/13/2018 Status: F Source: NANDO WORKUP 8:35 AM [facility] [place] [facility] Order Comment: Baby's Full Name Baby Boy Monisha Baby's Bracelet # [id number] Baby's MR # [id number] TYPE CODE TESTS RESULT OUT OF RANGE REFERENCE UNITS LAB B101.0425 A Normal MOM'S ABO NEGATIVE RH LAB B101.0450 Normal MOM'S ABS NEGATIVE LAB B101.0500 NEGATIVE Normal NEGATIVE SCREEN LAB B101.0950 A Normal BABY'S POSITIVE ABO RH LAB B101.1000 NEGATIVE Normal BABY'S NEGATIVE DESTINEE Performed By: #### B101.0300 #### [facility] [address] [place], [address] OPERATIVE REPORT Observed: 06/13/2018 Status: F Source: JEANNETTE 4:23 AM [facility] [place] [facility] Medical Records Department [address] [place] [address] Operative Report 06/13/18 0420 MR#: [id number] Acct: [id number] Name: MARIA EUGENIA SEYMOUR Rep #: [id number] : 1995 23 From: Sepideh Trotter MD PCP: Care Physician, No Primary Status: ADM IN Location: [place] [address] Problem List (1) Breech presentation Status: Acute Qualifiers: Report of Operation Date of Procedure: 06/13/18 Pre-Operative Diagnosis: breech ial Post-Operative Diagnosis: same Surgery/Procedure Performed:: ltcs Description of Surgical Findings:: nl uterus infant complete breech operations welder: Camille Bello Type of Anesthesia:: Spinal Special [...] AND PHYSICAL Observed: 06/13/2018 Status: F Source: JEANNETTE EXAM 4:00 AM [facility] [place] [facility] Medical Records Department [address] [place] [address] History and Physical 06/13/18 0358 MR#: [id number] Acct: [id number] Name: MARIA EUGENIA SEYMOUR Rep #: [id number] : 1995 23 From: Sepideh Trotter MD PCP: Care Physician, No Primary Status: ADM IN Y Location: [facility]-3 - Problem List (1) Breech presentation Status: [...] ctx. she has received care by a professional volleyball player in the community- Flor Gates. She denies any complications to the . Allergies No Known Allergies Allergy (Verified 06/12/18 02:31) Home Medications: Home Medications Vits [Prenatabs FA ] 1 tab PO DAILY 06/12/18 Smoking Status: Former smoker Alcohol: None Number of Fetus(es): 1 Heart Tracins History Past Pregnancies: Past Pregnancies Delivery Name GA/Weeks Outcome Route WeiInfant GeLabsd LenAnesthesiDelivery Provider FOB Date t [facility] a Location Labs: Course Did the patient [...] Symmetrical, Neuro grossly intact. 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 Negative for: Vulvar lesions [...] 06/12/2018 Status: F Source: NANDO 2:25 AM [facility] [place] [facility] TYPE CODE TESTS RESULT OUT OF [...] Lymph 1.74 Performed By: #### L100.0100 #### [facility] [address] [place], [address] URINALYSIS, COMPLETE Collected: 06/12/2018 Status: F Source: JEANNETTE 2:25 AM [facility] [place] [facility] Order Comment: How was Urine Obtained? [...] URINE Performed By: #### L400.0001, L509.4000 #### [facility] [address] [place], [address] RUBELLA IGG Collected: 06/12/2018 Status: F Source: JEANNETTE 2:25 AM [facility] [place] [facility] TYPE CODE TESTS RESULT OUT OF RANGE REFERENCE UNITS LAB L509.4000 IU/mL Normal Rubella IgG 460.0 Result Comment: Antibody results Interpretation of Immune Status < 5 IU/ml Presumed Non-immune 5 - < 10 IU/ml Equivocal > or = 10 IU/ml Presumed Immune Performed By: #### L400.0001, L509.4000 #### [facility]. [facility] [id number] HIV - [facility] Collected: 06/12/2018 Status: F Source: JEANNETTE 2:25 AM [facility] [place] [facility] TYPE CODE TESTS RESULT OUT OF RANGE REFERENCE UNITS LAB L3890.6005 Nonreactive Normal HIV - [facility] Non-Reactive Performed By: #### L3890.6005 #### [facility] [place], [place], [address] TYPE AND SCREEN Collected: 06/12/2018 Status: F Source: JEANNETTE 2:25 AM [facility] [place] [facility] Order Comment: Reason for Type AND Screen/Red Cells: ROUTINE TYPE CODE TESTS RESULT OUT OF RANGE REFERENCE UNITS LAB B10.0800 A Normal BLOOD TYPE GEL NEGATIVE LAB B100.4000 Normal Antibody NEGATIVE Screen Performed By: #### B101.7450 #### [facility] [address] [facility] [facility] [id number] HEPATITIS B SURFACE Collected: 06/12/2018 Status: F Source: JEANNETTE AG 2:25 AM [facility] [place] [facility] TYPE CODE TESTS RESULT OUT OF RANGE REFERENCE UNITS LAB L3100.0400 Negative Normal HB Negative SURF AG Result Comment: Performed at: - [facility] [id number] Political Consultant: John Stacy PhD, Phone: [phone] Performed By: #### L3100.0390, L3100.0625 #### [facility] (refer to report for specific site) refer to report for address and phone number HEPATITIS C ANTIBODIES Collected: 06/12/2018 Status: F Source: JEANNETTE 2:25 AM [facility] [place] [facility] TYPE CODE TESTS RESULT OUT OF RANGE REFERENCE UNITS LAB L3100.0650 0.0-0.9 s/co ratio Normal HEP C AB 0.1 Result Comment: Negative: < 0.8 Indeterminate: 0.8 - 0.9 Positive: > 0.9 The CDC recommends that a positive HCV antibody result be followed up with a HCV Nucleic Acid Amplification test (800400). Performed By: #### L3100.0390, L3100.0625 #### [facility] (refer to report for specific site) refer to report for address and phone number RAPID PLASMIN REAGIN Collected: 06/12/2018 Status: F Source: JEANNETTE (RPR) 2:25 AM [facility] [place] [facility] TYPE CODE TESTS RESULT OUT OF REFERENCE UNITS RANGE LAB L700.5000 NONREACTIVE NONREACTIVE Normal RPR Performed By: #### L700.5000 #### [facility] [address] [place], [address] ALLERGIES ALLERGIES DATE TYPE / CODE NAME / CODE REACTION SEVERITY SOURCE 06/12/2018 Drug No Known Unknown [facility] Allergy/4160 Allergies/F00 Hospital 16627(SNOMED [id number](RXNOR Repository CT) M) ENCOUNTERS ENCOUNTERS ADMIT/DISCHARGE ACCOUNT ADMITTING ENCOUNTER LOCATION SOURCE NUMBER CLASS 06/13/2018/ [id number] Rose Marie, Inpatient Romance Romance 8 3 Sepideh Encounter [facility] ing:WPRoom: Repository [id number]: 1 06/13/2018 [id number] Rose Marie Ambulatory BMSBuilding:B Romance 1 Sepideh MS.CF.[facility] Repository 06/13/2018 [id number] Rose Marie Ambulatory BMSBuilding:B Romance 5 Sepideh MS.CF.[facility] Repository 06/13/2018 [id number] Marcjungony, Ambulatory BMSBuilding:B Romance 8 Sepideh MS.CF.[facility] Repository 06/12/2018/ [id number] Ambulatory Romance Romance 8 3 [facility] ing:WPOUTRoom Repository : [id number] PAYERS PAYERS ENCOUNTER GUARANTOR PAYER SUBSCRIBER SOURCE 06/13/2018 MARIA EUGENIA W Primary Insurance:[employer] [facility] MARIA EUGENIA Mendiola Nando [id number] SR PACKAGE PLANPolicy GINGERICHDOB: [facility] [address] Number: [id number] [facility] , [place] [address]Mex: . [id number] Repository (HP) Date:2018-06-13 06/13/2018 Secondary NOT GIVENUNK Romance Insurance:SELF PAY [facility] Number: Effective Repository Date:2018-06-13 06/13/2018 MARIA EUGENIA Marlena Primary Insurance:[employer] [employer] MARIA EUGENIA Mendiola Romance [id number] SR PACKAGE PLANPolicy GINGERICHDOB: [facility] [address] Number: [id number] [facility] , [place] [address]Gad: . [id number] Repository (HP) Date:2018-06-13 06/13/2018 Secondary NOT GIVENUNK Romance Insurance:SELF PAY [facility] Number: Effective Repository Date:2018-06-13 06/13/2018 MARIA EUGENIA Mendiola Primary Insurance:[employer] MARIA EUGENIA Conneroster [id number] SR PACKAGE PLANPolicy GINGERICHDOB: [facility] [address] Number: Effective [id number], [place] [address]Yld: 0 Date:2018-06-13 Repository (HP) 06/13/2018 Secondary NOT GIVENUNK Nando Insurance:SELF PAY [facility] Number: Effective Repository Date:2018-06-13 06/13/2018 MARIA EUGENIA Mendiola Primary Insurance:[employer] MARIA EUGENIA Mendiola Romance [id number] SR PACKAGE PLANPolicy GINGERICHDOB: [facility] [address] Number: [id number], [place] [address]Ioe: . [id number] Repository (HP) Date:2018-06-13 06/13/2018 Secondary NOT GIVENUNK Nando Insurance:SELF PAY [facility] Number: Effective Repository Date:2018-06-13 06/12/2018 MARIA EUGENIA Mendiola Primary Insurance:[employer] MARIA EUGENIA Mendiola Nando [id number] SR PACKAGE PLANPolicy GINGERICHDOB: [place] [address] Number: Effective [id number], [place] [address]Ahj: 0 Date:2018-06-12 Repository () 06/12/2018 Secondary NOT GIVENUNK Nando Insurance:SELF PAY [facility] Number: Effective Repository Date:2018-06-12
== END 2018-06-15 11:35 | disposition home or self-care (01) | DRG 788 ==
PROVIDERS: Admitting Provider Obstetrics & Gynecology; Visit Provider Obstetrics & Gynecology
DX: O32.1XX0 Maternal care for breech presentation, not applicable or unspecified (principal); Z3A.39 39 weeks gestation of pregnancy; Z37.0 Single live birth; Z87.891 Personal history of nicotine dependence
CPT/HCPCS: 59025; 59050; 85027; 85461; 90384; 99218; J7120; A4216; G0378; J2405; J2790

== ENCOUNTER 2020-03-06 04:50 | Inpatient (IN) | payer SELFPAY, OTHER ==
[2018-06-13 01:48] VITALS: BMI 30.7
[2020-03-06] VITALS (50 sets, daily range): BP systolic 76–126; BP diastolic 43–74; PULSE 68–129; RESP 16; TEMP 36.5–37.2; O2SAT 92–100; BMI 29.7
[2020-03-06] MEDS: Lactated Ringers 1,000 ML 50 ML IV (05:10)
[2020-03-06] MEDS: Lactated Ringers 500 ML 999 ML IV ×2 (05:15→06:16)
[2020-03-06 05:31] LABS: Absolute Lymphocyte Count 1.09 X10^3/uL (0.83-4.51); Absolute Neutrophil Count 10.9 X10^3/uL (2.0-7.7); Basophil# 0.04 X10^3/uL; Basophil% 0.3 % (0-1); Eosinophil# 0.01 X10^3/uL; Eosinophils% 0.1 % (0-5); Hematocrit 35.5 % (37-47); Hemoglobin 11.5 g/dL (12.0-15.0); Lymphocyte # 1.09 X10^3/ul (4.0); Lymphocyte % 8.6 % (19-41); Mean Corp Hgb Conc 32.4 g/dL (32-36); Mean Corpuscular Hgb 24.8 pg (27.0-32.0); Mean Corpuscular Volume 76.5 fL (81-99); Mean Platelet Vol. 10.3 fl (6.2-12.0); Monocyte# 0.58 X10^3/uL; Monocyte% 4.6 % (0-10); NRBC Flagged by Analyzer 0 % (0-5); Neutrophil # 10.85 X10^3/uL (2.7-7.7); Neutrophil % 85.4 % (47-70); Platelet Count 156 K/mm3 (150-450); RBC Distribution Width CV 13.8 % (11.6-14.6); RBC Distribution Width SD 37.2 fl (35.1-43.9); Red Blood Count 4.64 M/mm3 (4.2-5.4); White Blood Count 12.7 K/mm3 (4.4-11.0)
--- NOTE | 2020-03-06 05:47 | HP.PCM_ITS ---
- Problem List (1) Active labor Status: Acute (2) History of delivery Status: Acute History Date of Admission: 06/13/18 Final SKYLAR: 03/03/20 Final SKYLAR Source: LMP Gestational age: 40 Weeks and 3 Days History of this : This is a 25 year-old, G2, P1, at 40 weeks gestational age admitted in active labor. She has a history of a for Breech. She was attempting a home , but stopped making cervical change and was becoming exhausted so she presented to the hospital. Medical History: Medical History Breech presentation (Acute) O32.1XX0 Allergies No Known Allergies Allergy (Verified 03/06/20 05:27) Home Medications: Home Medications Vits [Prenatabs FA ] 1 tab PO DAILY 06/12/18 Smoking Status: Former smoker Alcohol: None Number of Fetus(es): 1 NST - FHR Rate Baby A Baseline: 140 Variability:: Moderate Accelerations:: 15 x 15 Decelerations:: Variable - rare NST Reactive:: Yes FHR Category:: Category II - rare variable decels Uterine Activity:: q2-3min History Past Pregnancies: Past Pregnancies Delivery Date Name GA/ Weeks Outcome Route Wt Sex Labor Length Anesthesia Delivery Location Provider FOB Labs: Mom's Problem List Problem Status Onset Code Active labor Acute History of delivery Acute Z98.891 Mom's Labs & Results 03/06/20 03/06/20 03/06/20 05:10 05:10 05:10 WBC 12.7 H RBC 4.64 Hgb 11.5 L Hct 35.5 L MCV 76.5 L MCH 24.8 L MCHC 32.4 RDW Std Deviation 37.2 RDW Coeff of Tanya 13.8 Plt Count 156 MPV 10.3 Immature Gran % (Auto) 1.000 H Neut % (Auto) 85.4 H Lymph % (Auto) 8.6 L [place] % (Auto) 4.6 Eos % (Auto) 0.1 Baso % (Auto) 0.3 Absolute Neuts (auto) 10.9 H Absolute Lymphs (auto) 1.09 Nucleated RBC % 0 Urine Color Urine Clarity Urine pH Ur Specific [place] Urine Protein Urine Glucose (UA) Urine Ketones Urine Occult Blood Urine Nitrite Urine Bilirubin Urine Urobilinogen Ur Leukocyte Esterase Urine RBC Urine WBC Ur Squamous Epith Cells Urine Bacteria Urine Mucus Urine Opiates Screen Urine Methadone Screen Ur Barbiturates Screen Ur Phencyclidine Scrn Ur Amphetamines Screen U Methamphetamin-MDMA U Benzodiazepines Scrn Urine Cocaine Screen U Cannabinoids Screen Ur Drug Screen Comment RPR Pending Chlam trachomat DNA PCR Hep Bs Antigen Hepatitis C Antibody HIV 1&2 Antibody N.gonorrhoeae DNA (PCR) Rubella IgG Antibody Pending Group B Strep DNA Specimen Comment POC Glucose Blood Type Antibody Screen 03/06/20 03/06/20 03/06/20 05:10 05:10 05:10 WBC RBC Hgb Hct MCV MCH MCHC RDW Std Deviation RDW Coeff of Tanya Plt Count MPV Immature Gran % (Auto) Neut % (Auto) Lymph % (Auto) [place] % (Auto) Eos % (Auto) Baso % (Auto) Absolute Neuts (auto) Absolute Lymphs (auto) Nucleated RBC % Urine Color Urine Clarity Urine pH Ur Specific [place] Urine Protein Urine Glucose (UA) Urine Ketones Urine Occult Blood Urine Nitrite Urine Bilirubin Urine Urobilinogen Ur Leukocyte Esterase Urine RBC Urine WBC Ur Squamous Epith Cells Urine Bacteria Urine Mucus Urine Opiates Screen Urine Methadone Screen Ur Barbiturates Screen Ur Phencyclidine Scrn Ur Amphetamines Screen U Methamphetamin-MDMA U Benzodiazepines Scrn Urine Cocaine Screen U Cannabinoids Screen Ur Drug Screen Comment RPR Chlam trachomat DNA PCR Hep Bs Antigen Pending Hepatitis C Antibody Pending HIV 1&2 Antibody Pending N.gonorrhoeae DNA (PCR) Rubella IgG Antibody Group B Strep DNA Pending Specimen Comment Pending POC Glucose Blood Type A NEGATIVE Antibody Screen NEGATIVE 03/06/20 03/06/20 03/06/20 05:19 05:50 05:50 WBC RBC Hgb Hct MCV MCH MCHC RDW Std Deviation RDW Coeff of Tanya Plt Count MPV Immature Gran % (Auto) Neut % (Auto) Lymph % (Auto) [place] % (Auto) Eos % (Auto) Baso % (Auto) Absolute Neuts (auto) Absolute Lymphs (auto) Nucleated RBC % Urine Color Yellow Urine Clarity Clear Urine pH 5.0 Ur Specific [place] 1.020 Urine Protein 30 H Urine Glucose (UA) Normal Urine Ketones 50 H Urine Occult Blood 250 H Urine Nitrite Negative Urine Bilirubin Negative Urine Urobilinogen Normal Ur Leukocyte Esterase 25 H Urine RBC > 100 SEEN Urine WBC 0-5 SEEN Ur Squamous Epith Cells 0-5 SEEN Urine Bacteria 2+ Urine Mucus 1+ Urine Opiates Screen NEGATIVE Urine Methadone Screen NEGATIVE Ur Barbiturates Screen NEGATIVE Ur Phencyclidine Scrn NEGATIVE Ur Amphetamines Screen NEGATIVE U Methamphetamin-MDMA NEGATIVE U Benzodiazepines Scrn NEGATIVE Urine Cocaine Screen NEGATIVE U Cannabinoids Screen NEGATIVE Ur Drug Screen Comment RPR Chlam trachomat DNA PCR Hep Bs Antigen Hepatitis C Antibody HIV 1&2 Antibody N.gonorrhoeae DNA (PCR) Rubella IgG Antibody Group B Strep DNA Specimen Comment POC Glucose 94 Blood Type Antibody Screen 03/06/20 05:50 WBC RBC Hgb Hct MCV MCH MCHC RDW Std Deviation RDW Coeff of Tanya Plt Count MPV Immature Gran % (Auto) Neut % (Auto) Lymph % (Auto) [place] % (Auto) Eos % (Auto) Baso % (Auto) Absolute Neuts (auto) Absolute Lymphs (auto) Nucleated RBC % Urine Color Urine Clarity Urine pH Ur Specific [place] Urine Protein Urine Glucose (UA) Urine Ketones Urine Occult Blood Urine Nitrite Urine Bilirubin Urine Urobilinogen Ur Leukocyte Esterase Urine RBC Urine WBC Ur Squamous Epith Cells Urine Bacteria Urine Mucus Urine Opiates Screen Urine Methadone Screen Ur Barbiturates Screen Ur Phencyclidine Scrn Ur Amphetamines Screen U Methamphetamin-MDMA U Benzodiazepines Scrn Urine Cocaine Screen U Cannabinoids Screen Ur Drug Screen Comment RPR Chlam trachomat DNA PCR Pending Hep Bs Antigen Hepatitis C Antibody HIV 1&2 Antibody N.gonorrhoeae DNA (PCR) Pending Rubella IgG Antibody Group B Strep DNA Pending Specimen Comment Pending POC Glucose Blood Type Antibody Screen Course Did the patient receive Yes care? Labs Blood Type: A RH: NEGATIVE HIV/AIDS Non-Reactive Current Obstetrical History Gestational Diabetes No Incompetent Cervix No Infertility No IUGR No Macrosomia No Hypertension/Pre-eclampsia No Placenta Previa/Abruption No PTL/PROM No Uterine anomaly No Oligohydramnios No Polyhydramnios No Multiple gestation No Past Medical History Asthma No Diabetes No Hypertension No Heart disease No Mitral valve prolapse No Neurologic/Seizure disorder/ No Migraines Kidney disease No Liver disease No Varicosities Yes Clotting disorders/Hx of DVT No Thyroid Dysfunction No Other medical diseases No Psychiatric disorders No Major trauma No Abnormal PAP smear No Sleep apnea No Mammogram in the last 2 years No Social History Marital Status: Alleged father Pierre Bearden Hx Smoking No Smoking Status Never smoker Expected Delivery Method: Describe any other labor & delivery plans:: Desires epidural Review of Systems Constitutional: Denies: Chills, Fever, Weight Change HEENT: Denies: Head Aches Cardiovascular: Denies: Chest Pain, Palpitations Respiratory: Denies: Cough, Shortness of Breath Gastrointestinal: Reports: Abdominal Pain. Denies: Nausea, Vomiting Genitourinary: Denies: Dysuria Gynecological: Reports: Vaginal discharge. 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 Negative for: Vulvar lesions Estimated gestational size: Appropriate for gestational size Presentation: Cephalic Cervix Dilation (cm): 8 Station: 0 Effacement (%): 90 Assessment/Plan All Active Problems Breech presentation (Acute) Active labor (Acute) History of delivery (Acute) This is a 25 year-old, G 2, P1, at 40 weeks gestational age with history of c- section for breech admitted in active labor - TOLAC - aware of risks and benefits. Desires TOLAC. Dr. Trotter available as backup provider - Desires epidural. - GBS unknown - no RFs to treat - Rh negative - No PNC labs ordered.
[2020-03-06 05:56] LABS: Bedside Glucose 94 mg/dL (70-110)
[2020-03-06 06:19] LABS: Color, Urine Yellow (Yellow); Glucose, Dipstick Normal (Normal); Ketone-Dipstick 50 mg/dl (Negative); Leukocyte Esterase-Dipstick 25 /ul (Negative); Nitrite-Dipstick Negative (Negative); Occult Blood-Urine 250 /ul (Negative); Protein-Dipstick 30 mg/dl (Negative); Urine Bilirubin Dipstick Negative (Negative); Urine Clarity Clear (Clear); Urine Urobilinogen Normal (Normal)
[2020-03-06] MEDS: fentaNYL-bupivacaine (epidural) 100 ML BAG EPIDURAL ×2 (06:20→11:03)
[2020-03-06 06:35] LABS: Amphetamine Urine VISTA NEGATIVE (<1000 ng/mL); Barbiturate Urine VISTA NEGATIVE (< 200 ng/mL); Benzodiazepine Urine VISTA NEGATIVE (< 200 ng/mL); Cocaine Urine VISTA NEGATIVE (< 300 ng/mL); Ecstacy Urine VISTA NEGATIVE (< 500 ng/mL); Methadone Urine VISTA NEGATIVE (< 300 ng/mL); PCP Urine VISTA NEGATIVE (< 25 ng/mL); THC Urine VISTA NEGATIVE (< 50 ng/mL); Vista UDS pH Range 5
[2020-03-06 06:45] LABS: Mucous, Urine 1+ /hpf (<or=2+); Red Blood Cells-Urine > 100 SEEN /hpf (0-5); Squamous Epithelial Cells - UA 0-5 SEEN /hpf (5-10); White Blood Cells 0-5 SEEN /hpf (0-5)
[2020-03-06 06:46] LABS: Bacteria 2+ /hpf (None Seen)
[2020-03-06 07:20] LABS: Group B Strep DNA By PCR Negative (Negative); Internal Control PASS; Probe Check PASS; Specimen Processing Control PASS
[2020-03-06 08:14] LABS: Chlamydia Trachomatis by PCR Negative (Negative); Group B Strep DNA By PCR Negative (Negative); Internal Control PASS; Neisserai gonorrhoeae by PCR Negative (Negative); Probe Check PASS; Specimen Processing Control PASS
[2020-03-06 08:15] LABS: Probe Check PASS; Sample Adequacy Control PASS; Specimen Processing Control PASS
[2020-03-06 08:40] LABS: Rubella IgG 414.9 IU/mL
[2020-03-06 09:21] LABS: HIV - WCH Non-Reactive (Nonreactive); Hepatitis B Surface Antigen Non-Reactive (Nonreactive); Hepatitis C Antibody Non-Reactive (Nonreactive)
[2020-03-06] MEDS: Lactated Ringers 1,000 ML 200 ML IV (09:36)
[2020-03-06] MEDS: Oxytocin 30 units/NS 500 ml 30 UNITS/500 ML IV.SOLN 334 UNITS IV (11:53)
[2020-03-06] MEDS: Methylergonovine 0.2 MG/ML Ampul IM (11:56)
--- NOTE | 2020-03-06 12:26 | OP.PCM_ITS ---
Problem List (1) Active labor Status: Acute (2) History of delivery Status: Acute Vaginal Delivery Patient is a 25-year-old at 39 weeks gestation with a history of a prior section for breech presentation who presented in active labor. 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 She was attempting labor at the birthing center, but was stuck at 3 to 4 cm dilation and was not making progress. She was requesting an epidural and was therefore transferred to the hospital. On presentation she was found to be 8 cm. After receiving her epidural, she made cervical change to complete dilation. Amniotic Membrane Rupture Type: Spontaneous at home Amniotic Fluid Description: Clear Final SKYLAR: 03/03/20 Final SKYLAR Source: LMP Gestational age: 40 Weeks and 3 Days Date of Procedure: 03/06/20 Pre-Operative Diagnosis: Active labor, trial of labor after Surgery/ Procedure Performed: Spontaneous Vaginal Delivery Type of Anesthesia: Epidural Description of Procedure: After pushing for 4 hours with good progress, the head was found to be at the perineum. The head delivered in the REFUGIO position. The head was delivered atraumatically and a loose nuchal cord ?1 was identified and easily reduced over the 's head. The anterior and posterior shoulders delivered without complication followed by the rest of the infant and the infant was placed on the maternal abdomen. Delayed cord clamping was employed until the cord stopped pulsating. Cord was clamped and cut and gentle traction was applied to the cord and the placenta delivered spontaneously immediately following it was noted to be intact with three-vessel cord. Following delivery of the placenta, significant uterine atony was noted. Bimanual uterine massage was performed. Pitocin infusion was increased. 1 dose of intramuscular Methergine was administered. At this point uterine tone was noted to improve. The perineum and vagina were inspected and a midline second-degree laceration with extension to the right labia was noted and repaired in the standard fashion using 3-0 Vicryl Rapide suture. EBL was 400 cc. Patient and tolerated delivery well. Presentation: Vertex, REFUGIO Placental Delivery Description: Spontaneous Placenta Disposition: [facility] Cord Vessel Description: 3 Vessels Nuchal Cord Compression: Without compression Cord Entanglement: Around neck x 1, loose Estimated Blood Loss: 400 cc A gender: Female Laceration: Midline, Periurethral Extnsion/lac, Vaginal Extension/lac, 2nd degree Medications given after delivery: IV Pitocin Complications: - - Uterine atony Multi Select Codes - Urinary/Genital Urinary/Genital CPT Codes: 87530 delivery only
--- NOTE | 2020-03-06 12:35 | DCINST_ITS ---
Discharge Diet: No Restrictions Discharge Activity: Return to Normal Activity, May not drive while taking narcotic pain medications., May Shower May resume sexual activity in: 6 weeks Additional Activity Instructions:: Nothing in the vagina for 4-6 weeks. You may return to work/school in 6 weeks. Call your doctor if your incision/area has: Continuous Slow Oozing, Sudden Increased Bleeding, Increased Pain/ Swelling, Increased Redness, Foul Smelling Discharge Additional Instructions: If you experience any of the following, contact your healthcare provider. * Bleeding that soaks a pad every hour for 2 hours * Fever 100.4 or higher * Unrelieved incision or abdominal pain * Swelling, redness, discharge or bleeding from your incision or episiotomy site * Your incision begins to separate * Problems urinating (including inability to urinate or burning while urinating). * Visual changes * Severe headache * Flu-like symptoms * Pain or redness in one of both of your breasts * Pain, warmth, tenderness or swelling in your legs, especially the calf area * Frequent nausea and vomiting * Symptoms of depression or anxiety If you experience any of the following, call 911 or go to the nearest Emergency Room. * Chest pain * Problems breathing * Seizure activity * Partial or complete paralysis of a body part, slurred speech, weakness or drooping of the face, or a sudden inability to walk or hold your balance Allergies/Adverse Reactions: Allergies No Known Allergies Allergy (Verified 03/06/20 05:27) Medications to take at Discharge Vits [Prenatabs FA ] 1 tab PO DAILY 06/12/18 Docusate Sodium [Colace] 100 mg PO BID #60 cap 03/06/20 Naproxen [Naprosyn] 250 - 500 mg PO Q8H PRN PRN #30 tab 03/06/20 The following prescriptions were given: Docusate Sodium [Colace] 100 mg PO BID #60 cap Transmission Status: Pending to [facility] Naproxen [Naprosyn] 250 - 500 mg PO Q8H PRN PRN #30 tab PRN Reason: MILD PAIN Transmission Status: Pending to [facility] When: Call to make an appointment with your doctor in 6 weeks. If you had elevated Blood Pressure or 4th degree laceration you will need to be seen in 2 weeks. Primary Care Physician: Care Physician,No Primary [Primary Care Provider] - Test Results: Test results from this visit will be discussed in further detail at your follow- up appointment, if applicable.
--- NOTE | 2020-03-06 16:42 | NURSING ---
student nurses charting reviewed and used for educational and learning purposes.
[2020-03-06] MEDS: Acetaminophen 500 MG Tablet 1000 MG PO (19:55)
[2020-03-07 00:16] VITALS: BP 94/53; PULSE 83
[2020-03-07 00:17] VITALS: BP 94/53; PULSE 83; RESP 16; TEMP 36.5
[2020-03-07 01:33] LABS: Rapid Plasmin Reagin (RPR) NONREACTIVE (NONREACTIVE)
[2020-03-07 04:41] VITALS: BP 108/56; PULSE 85; RESP 16; TEMP 36.6
[2020-03-07] MEDS: Acetaminophen 500 MG Tablet 1000 MG PO (05:26)
--- NOTE | 2020-03-07 07:54 | PCM.PN.OB ---
Patient Problems: Active and Suspected Problems Active labor (Acute) History of delivery (Acute) Subjective: Patient doing well without complaints. Tolerating PO. Pain controlled. Ambulating and voiding without difficulty. Breast feeding well. Denies chest pain, shortness of breath, calf pain/swelling, fevers, chills, lightheadedness. - Physical Exam Vitals/I&O's: Vital Signs Temp Pulse Resp BP Pulse Ox 98 F 85 16 108/56 L 97 03/07/20 04:41 03/07/20 04:41 03/07/20 04:41 03/07/20 04:41 03/06/20 19:48 Oxygen Delivery Method Room Air Weight: 178 lb 12.8 oz Body Mass Index (BMI) 29.7 Intake and Output for Last 24 Hours 03/05/20 03/06/20 03/07/20 23:59 23:59 23:59 Intake Total 2627.01 / 2627.01 Output Total 1650 / 1650 Balance 977.01 / 977.01 General: Alert, Oriented x3, Cooperative, No apparent distress, Well developed, Well nourished HEENT: Atraumatic, PERRLA, EOMI, Normocephalic Oral: Moist Mucosa Neck: Supple Lungs: Normal air movement Cardiovascular: Regular rate Abdomen: Soft, Non Tender, Non-Distended, - - fundus firm Extremities: No edema, No Calf Tenderness Neurological: Cranial nerves II-XII grossly intact, Deep Tendon Reflexes 2+/4 and Symmetrical, Neuro grossly intact Psych/Mental Status: Normal Affect, Appropriate Laboratory Results 03/06/20 05:10: Rubella IgG Antibody 414.9 03/06/20 05:10: RPR NONREACTIVE 03/06/20 05:10: Hep Bs Antigen Non-Reactive, Hepatitis C Antibody Non-Reactive, HIV 1&2 Antibody Non-Reactive 03/06/20 05:50: Chlam trachomat DNA PCR Negative, N.gonorrhoeae DNA (PCR) Negative, Group B Strep DNA Negative, Specimen Comment Not Reportable 03/06/20 15:00: Screen NEGATIVE, Baby's Blood Type A POSITIVE, Baby's DESTINEE NEGATIVE Current Medications Acetaminophen (Tylenol) 1,000 mg PO Q8H PRN PRN PRN Reason: Pain Score 1-3/10 Last Admin: 03/07/20 05:26 Dose: 1,000 mg Documented by: Bisacodyl (Dulcolax) 10 mg RECTAL UD PRN PRN Reason: If no BM Dibucaine (Dibucaine) 1 applic TOPICAL TID PRN PRN; Protocol PRN Reason: Discomfort Hydrocortisone (Hytone) 1 applic TOPICAL TID PRN PRN; Protocol PRN Reason: Discomfort Methylergonovine Maleate (Methergine) 0.2 mg IM X1 PRN PRN Reason: Excess bleeding/uterine atony Last Admin: 03/06/20 11:56 Dose: 0.2 mg Documented by: Naproxen (Naprosyn) 500 mg PO Q8H PRN PRN PRN Reason: Pain Score 1-3/10 Ondansetron HCl (Zofran) 4 mg IV Q4H PRN PRN PRN Reason: Nausea Oxycodone HCl (Oxyir) 5 - 10 mg PO Q4H PRN PRN PRN Reason: Pain Score 4-10/10 Prochlorperazine Edisylate (Compazine Iv) 10 mg IV Q6H PRN PRN PRN Reason: NAUSEA/VOMITING Senna/Docusate Sodium (Senokot-S, Jill-Colace) 1 - 2 tablet PO DAILY PRN PRN PRN Reason: Constipation Simethicone (Mylicon) 80 mg PO PCHS PRN PRN Reason: Indigestion/Stomach pain Sodium Chloride () 5 - 15 ml IV UD PRN PRN Reason: SALINE FLUSH Medical Necessity - Tobacco Use Smoking Status: Never smoker Assessment/Plan All Active Problems Breech presentation (Acute) Active labor (Acute) History of delivery (Acute) s/p PPD #1 1. routine post delivery care 2. breast feeding- support given 3. rh positive 4. rubella immune
[2020-03-07 08:02] VITALS: BP 102/59; PULSE 79
[2020-03-07 08:05] VITALS: BP 102/59; PULSE 79; RESP 16; TEMP 36.6
== END 2020-03-07 14:20 | disposition home or self-care (01) | DRG 807 ==
PROVIDERS: Admitting Provider Obstetrics & Gynecology; Referring Provider Obstetrics & Gynecology; Visit Provider Obstetrics & Gynecology
DX: O48.0 Post-term pregnancy (principal); Z37.0 Single live birth; Z3A.40 40 weeks gestation of pregnancy; O69.81X0 Labor and delivery complicated by cord around neck, without compression, not applicable or unspecified; O71.82 Other specified trauma to perineum and vulva; O62.2 Other uterine inertia
CPT/HCPCS: 59025; 59050; 80307; 81001; 82962; 85025; 85461; 86592; 86703; 86762; 86803; 86850; 86900; 86901; 87081; 87340; 87491; 87591; 87653; 90384; 99218; J7120; G0378; J2790

== ENCOUNTER → 2023-09-06 | Outpatient (CLI) | payer SELFPAY ==
--- NOTE | 2023-09-06 10:00 | US_ITS ---
STUDY: SECOND AND THIRD TRIMESTER OBSTETRICAL ULTRASOUND REASON FOR EXAM: Female, 28 years old anatomy -- LMP 04/19/23 LMP: April 19, 2023. TECHNIQUE: Transabdominal and Transvaginal TECHNICAL QUALITY: Adequate. PRIOR ULTRASOUND: None. FINDINGS: There is a single intrauterine fetus. The fetus is in a breech presentation. There is demonstrated cardiac activity with a heart rate of 145 bpm. There is a normal amniotic fluid volume. The largest amniotic fluid pocket measures 5.3 cm. The amniotic fluid index (SONIA) is within normal limits. cm. The placenta is posterior in location and is not low lying. There are Grade 0 placental changes. The cervix measures 4.5 cm in length. The bilateral adnexal regions are normal. BIOMETRY: BPD: 4.6 cm: 20 weeks, 0 days HC: 17.4 cm: 20 weeks, 0 days AC: 15.4 cm: 20 weeks, 4 days FL: 3.2 cm: 20 weeks, 0 days CI: 75% FL/BPD: 69.3% FL/HC: FL/AC: 20.8 HC/AC: 1.1 age by current US: 20 weeks, 1 days. SKYLAR by current US: January 23, 2024. Estimated weight: 344 grams, +/- 52 grams, 61.4 %. Age by LMP: 20 weeks, 0 days. SKYLAR by LMP: January 24, 2024. ANATOMY: Gender: Male Cranium: Normal lateral ventricles. Normal choroid plexus. Normal cerebellum. Normal cisterna magna. Normal face, nose and lips. Chest: Normal 4-chamber heart. Abdomen/Pelvis: Normal Normal stomach.diaphragm. Normal abdominal wall. Normal cord insertion. Normal 3 vessel cord. Mild fullness of the bilateral renal pelves. Normal bladder. Spine: Normal cervical spine. Normal thoracic spine. Normal lumbar spine. Normal sacrum. Extremities: Normal bilateral upper extremities. Normal bilateral lower extremities. IMPRESSION: Single live intrauterine gestation with mean gestational age of 20 weeks and 1 day. Mild fullness of the renal pelves bilaterally. Electronically Signed: Jose A Borrero MD at 16:07 EDT , STUDY: FIRST TRIMESTER OBSTETRICAL ULTRASOUND REASON FOR EXAM: Female, 28 years old. Cervical length measurement. LMP: April 19, 2023. TECHNIQUE: Transvaginal TECHNICAL QUALITY: Adequate. PRIOR ULTRASOUND: None. FINDINGS: Cervical length measures 4.5 cm. US/OB Anatomy Scan IMPRESSION: Cervical length measures 4.5 cm. Electronically Signed: Jose A Borrero MD at 16:08 EDT ,
--- OUTSIDE RECORDS SUMMARY | 2023-09-06 10:14 | XMS RPT_ITS | CCD ---
Author Name Unknown Address [address] [place] [address] Organization [facility] Care Team Providers Care Assistant Media Planner Name Role Phone Kt Whatley Primary Care Provider [phone] CATHLEEN ROBBINS Admitting Unavailabl KT Foster Primary Care Unavailable CATHLEEN ROBBINS Attending Unavailabl e Vital Signs Date Time Vital Sign Value Performing Clinician Sue solo 12-08-2019 09:30-0400 BP Diastolic 63 mm[Hg] Cathleen Cardosoord [facility] 12-08-2019 09:30-0400 BP Systolic 109 mm[Hg] Cathleen Campbell [facility] 12-08-2019 09:30-0400 Pulse (Heart Rate) 81 /min Cathleen Campbell [facility] 12-08-2019 09:30-0400 Pulse Oximetry 99 % Cathleen [address] [facility] 12-08-2019 09:04-0400 Body Temperature 98.4 [degF] Cathleen [place] [facility] 12-08-2019 09:04-0400 Respiratory Rate 18 /min Cathleen Olmstead [facility] Encounters Encounter Date Encounter Type Care Provider Facility Start: 12-08-2019 End: 12-08-2019 Emergency department patient visit [facility] Start: 12-08-2019 End: 12-08-2019 Emergency department patient visit Cathleen Cardosoord Work Phone: [facility] Labor & Delivery Social History Date Type Detail Facility Start: 12-08-2019 Tobacco smoking status NHIS Never sm oker [facility] Start: 12-08-2019 Alcohol intake Lifetime non-d juany (finding) [facility] Start: 12-08-2019 History SDOH Alcohol Frequency 1 [facility] Start: 06-11-2019 [facility] Sex Assigned At Not on file [place] alth Exposure to SARS-CoV -2 (event) Not sure [facility] Discharge Instructions * Instructions* Brisa Gunn RN - 12/08/2019 Follow up with your care provider, If any problems or concerns plz return to labor and delivery * Attachments The following attachments cannot be sent through Care Everywhere. * : VAGINAL DELIVERY (PERUVIAN) * : WEEKS 26 TO 30 (PERUVIAN) documented in this encounter Advance Directives No Advanced Directives Records FoundDocuments on File Type Date Recorded Patient Hospitality Team Member Expl anation Advance Directives and Evelin bacon Will 12/08/2019 9:49 AM Summary Purpose Family History No Family History Records Found Additional Source Comments Reason for Visit (unrecogniz ed section and content) Med Valdivia RN - 12/08/2019 9:11 AM EDTSMed moser RN - 12/08/2019 9:01 AM EDT ED Notes (unrecognized secti on and content) Pt sent to Labor and Delivery PT IS HAVING VAGINAL BLEEDING, IS 6 MONTHS , HER TIMBER MANAGEMENT SPECIALIST SENT HER FOR RHOGAM AND ULTRASSOUND, DENIES OTHER COMPLICATION documented in this encounter INFORMATION SOURCE (unrecogn ized section and content) FOR RECORDS PERTAINING TO PATIENTS WHO ARE OR HAVE BEEN ENROLLED IN A CHEMICAL DEPENDENCY/SUBSTANCEABUSE PROGRAM, SOME INFORMATION MAY BE OMITTED. This clinical summary was aggregated from multiple sources. Caution should be exercised in using it in the provision of clinical care. This summary normalizes information from multiple sources, and as a consequence, information in this document may materially change the coding, format and clinical context of patient data. In addition, data may be omitted in some cases. CLINICAL DECISIONS SHOULD BE BASED ON THE PRIMARY CLINICAL RECORDS. [employer] provides no warranty or guarantee of the accuracy or completeness of information in this document.
== END | disposition home or self-care (01) ==
PROVIDERS: PCP Physician Assistant; Referring Provider Advanced Practice Midwife; Visit Provider Advanced Practice Midwife
DX: Z34.90 Encounter for supervision of normal pregnancy, unspecified, unspecified trimester (principal); Z3A.00 Weeks of gestation of pregnancy not specified
CPT/HCPCS: 76805

== ENCOUNTER → 2023-11-18 | Outpatient (CLI) | payer SELFPAY ==
[2023-11-18 14:09] LABS: Absolute Lymphocyte Count 1.59 X10^3/uL (0.83-4.51); Absolute Neutrophil Count 5.4 X10^3/uL (2.0-7.7); Basophil# 0.05 X10^3/uL; Basophil% 0.7 % (0-1); Eosinophil# 0.03 X10^3/uL; Eosinophils% 0.4 % (0-5); Hematocrit 32.4 % (37-47); Hemoglobin 10.7 g/dL (12.0-15.0); Lymphocyte # 1.59 X10^3/ul (0.83-4.51); Lymphocyte % 20.8 % (19-41); Mean Corpuscular Hgb 27.4 pg (27.0-32.0); Mean Corpuscular Volume 83.1 fL (81-99); Mean Platelet Vol. 9.7 fl (6.2-12.0); Monocyte# 0.49 X10^3/uL; Monocyte% 6.4 % (0-10); NRBC Flagged by Analyzer 0 % (0-5); Neutrophil # 5.42 X10^3/uL (2.7-7.7); Platelet Count 169 K/mm3 (150-450); RBC Distribution Width CV 12.3 % (11.6-14.6); RBC Distribution Width SD 37.1 fl (35.1-43.9); White Blood Count 7.6 K/mm3 (4.4-11.0)
[2023-11-18 14:33] LABS: Glucose Challenge Gest 1H 50g 73 mg/dL (70-140)
[2023-11-18 16:49] LABS: HIV - WCH Non-Reactive (Nonreactive); Syphilis Antibodies Non-reactive
== END | disposition home or self-care (01) ==
LOC: LAB 13:42
PROVIDERS: PCP Physician Assistant; Referring Provider Obstetrics & Gynecology; Visit Provider Obstetrics & Gynecology
DX: O26.899 Other specified pregnancy related conditions, unspecified trimester (principal); Z67.91 Unspecified blood type, Rh negative; Z3A.00 Weeks of gestation of pregnancy not specified
CPT/HCPCS: 36415; 82950; 85025; 86703; 86780; 86850; 86900; 86901

== ENCOUNTER 2024-01-03 11:42 | Outpatient (CLI) | payer SELFPAY ==
[2024-01-04 20:08] LABS: Chlamydia By Nucleic Acid AMP Negative (Negative); Gonococcus By Nucleic Acid AMP Negative (Negative)
== END 2024-01-03 23:59 | disposition home or self-care (01) ==
PROVIDERS: PCP Physician Assistant; Referring Provider Nurse Practitioner Women's Health; Visit Provider Nurse Practitioner Women's Health
DX: O09.90 Supervision of high risk pregnancy, unspecified, unspecified trimester (principal); Z3A.35 35 weeks gestation of pregnancy
CPT/HCPCS: 87081; 87086; 87088; 87491; 87591

== ENCOUNTER 2024-01-26 00:46 | Inpatient (IN) | payer SELFPAY ==
[2024-01-25 22:05] VITALS: BMI 31.4
[2024-01-25 22:07] VITALS: PULSE 88; O2SAT 99
[2024-01-25 22:08] VITALS: BP 113/67; PULSE 85
[2024-01-25 22:09] VITALS: RESP 14; TEMP 36.7
[2024-01-26] VITALS (38 sets, daily range): BP systolic 102–119; BP diastolic 56–73; PULSE 66–93; RESP 15–16; TEMP 36.3–37.2; O2SAT 99–100
[2024-01-26] MEDS: Lactated Ringers 1,000 ML 50 ML IV (01:15)
[2024-01-26 01:23] LABS: Absolute Lymphocyte Count 2.22 X10^3/uL (0.83-4.51); Absolute Neutrophil Count 4.9 X10^3/uL (2.0-7.7); Basophil# 0.04 X10^3/uL; Basophil% 0.5 % (0-1); Eosinophil# 0.04 X10^3/uL; Eosinophils% 0.5 % (0-5); Hemoglobin 11.1 g/dL (12.0-15.0); Lymphocyte # 2.22 X10^3/ul (0.83-4.51); Lymphocyte % 28.4 % (19-41); Mean Corp Hgb Conc 31.7 g/dL (32-36); Mean Corpuscular Volume 75.8 fL (81-99); Mean Platelet Vol. 9.9 fl (6.2-12.0); Monocyte# 0.56 X10^3/uL; Monocyte% 7.2 % (0-10); NRBC Flagged by Analyzer 0 % (0-5); Neutrophil # 4.89 X10^3/uL (2.7-7.7); Neutrophil % 62.6 % (47-70); Platelet Count 152 K/mm3 (150-450); RBC Distribution Width CV 14.5 % (11.6-14.6); RBC Distribution Width SD 38.7 fl (35.1-43.9); Red Blood Count 4.62 M/mm3 (4.2-5.4); White Blood Count 7.8 K/mm3 (4.4-11.0)
--- NOTE | 2024-01-26 01:43 | PCM.HP.OB ---
HPI - General General Date of Admission: 01/26/24 HPI Narrative MARIA EUGENIA SEYMOUR, is a 29 F who presents IAL desires TOLAC. 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 Home Medications ?Medication ?Instructions ?Recorded ?Last Taken ?Type vits,calcium no.78-iron 1 tab PO DAILY 06/12/18 03/05/20 08:00 History fumarate-folic acid 29 mg-1 mg tablet (Prenatabs FA) Allergy/AdvReac Type Severity Reaction Status Date / Time No Known Allergies Allergy Verified 01/25/24 22:13 Surgical History History of low transverse section Social History adopted: No household members: spouse and children number of children: 3 current occupational status: unemployed current occupation: [employer] current occupational exposures/hazards: No pets and animals: No history of recent travel: No sexually active: Yes Smoking Status: Never smoker alcohol intake: never substance use type: does not use well-balanced diet: daily or most days caffeine: Yes Type: coffee Number of servings: 2 eating out: rarely or never during the past year weight has: remained stable what type of physical activity do you participate in: none martin/adventism: [facility] seatbelt use: always do you feel safe at home: Yes additional social history: [employer] worker History 4 Elective abortions Hx Para 3 Spontaneous abortions Hx # Term Pregnancies Ectopic pregnancies Hx # Pregnancies Multiple births # of living children 3 Past Pregnancies Del. Date Name GA/Weeks Outcome Route Bth Weight Infant Gen Labor Lgth Anesthesia Del Locatn Provider FOB 06/13/18 Deonte 41 live - full term 8#7oz Male spinal [facility] MOY Pierre 03/06/20 Elmina 40 live - full term 7# Female epidural WC Zoran Pierre 04/19/22 Brian 40 live - full term 7#13oz Male none [facility] Kait Jay Delivery Date: 06/13/18 Last Updated by: Scarlett Bain breech Visit Details Expected Delivery Route/Plan patient counseled regarding risks/benefits of trial of labor versus repeat . ACOG/uptodate education given to patient. [] % likelihood of success per calculator TOLAC consent form signed: [] Labor Preferences- CB/BF classes: no labor support person: Pierre labor intervention preferences: [] pain management options preferred: limited cut cord/dad catch: cord : yes PP control planned: discussed discussed possible routes of delivery and associated risks: [] special requests: [] Plans Covid status: [] Flu vaccine: declined Tdap vaccine: declined Rhogam: given 11/17 LARC form signed: yes movement and labor precautions reviewed. Problem list reviewed and updated with the most current plan of care details and appropriate orders placed. Relevant counseling for the gestational age provided. Continue routine care and follow up unless otherwise noted in visit notes/problem list details OB Flowsheet Initial Weight: Not Recorded Date <del>?</del> EGA Weight BP Urine Prot <del>?</del> Glucose FHR FuHt Pres Dilation <del>?</del> Effaced St Visit Note 08/24/23 <del>?</del> 18w 1d 176 lb 6 oz 104/72 Negative <del>?</del> Negative 168 <del>?</del> kw-no vb/cramping. positive flutters. NOB labs from [facility]. Declines NIPT. Anatomy scan ordered for 20 weeks. 09/06/23 <del>?</del> 20w 0d 179 lb 4 oz 103/69 Negative <del>?</del> Negative 150 <del>?</del> LC- LC-no vb/cramping. anatomy report pending. 10/19/23 <del>?</del> 26w 1d 182 lb 96/65 Negative <del>?</del> Negative 150 26 <del>?</del> SM- no vb lof good fm nor egualr ctx SM- no vb lof good fm nor egualr ctx discussed pyelectasis 11/18/23 <del>?</del> 30w 3d 186 lb 99/68 Negative <del>?</del> Negative 140 30 <del>?</del> SM- no vb lof good fm no regular ctx cbc gct 11/29/23 <del>?</del> 32w 0d 186 lb 2 oz 107/69 Negative <del>?</del> Negative 135 32 <del>?</del> Sm- no vb lof good fm n oregular ctx 12/13/23 <del>?</del> 34w 0d 190 lb 6 oz 112/62 Negative <del>?</del> Negative 139 35 <del>?</del> JV- no lof, vaginal bleeding or dec fm,. pt only has a ride next week (35 weeks) and 37 weeks. plan to collecte GBS at 37 weeks. plans to . scan with MFM on 11/24 was normal. 12/20/23 <del>?</del> 35w 0d 189 lb 4 oz 101/67 Negative <del>?</del> Negative 145 35 Cephalic <del>?</del> JV- cephalic on bedside ultrasound. no lof vaginal bleeing, or dec fm. plan for GBS at next visit. She can not get a ride here until 37 weeks. plannign 01/03/24 <del>?</del> 37w 0d 189 lb 100/64 Negative <del>?</del> Negative 158 37 Cephalic 1 <del>?</del> 60 -1 MH-NO VB, LOf. Occa BH. Good FM. Had 2 hr of URQ pain then resolved. 1st event. No itching, headache, vision changes. Call if recurs for further eval. GCC, GBS and urine culture. Taking Fe 01/12/24 <del>?</del> 38w 2d 189 lb 92/67 Negative <del>?</del> Negative 130 38 Cephalic <del>?</del> KW- no vb/lof/ctx. good fm. no concerns 01/24/24 <del>?</del> 40w 0d 190 lb 6 oz 106/61 Negative <del>?</del> Negative 140 40 Cephalic 3 <del>?</del> 80 -2 KW- no vb/lof/ctx. good fm. IOL set up for 41 weeks NST FHR Rate Baby A Baseline: 130 Variability:: Moderate Accelerations:: 15 x 15 Decelerations:: None NST Reactive:: Yes FHR Category:: Category I Uterine Activity:: irregular ROS Constitutional Constitutional: Reports systems reviewed and no addt'l complaints, except as documented Eyes Eyes: Denies change in vision ENT HEENT: Reports systems reviewed and no addt'l complaints, except as documented; Denies headache(s) Cardiovascular Cardiovascular: Reports systems reviewed and no addt'l complaints, except as documented; Denies chest pain or dyspnea Respiratory/Chest Respiratory/Chest: Reports systems reviewed and no addt'l complaints, except as documented Gastrointestinal Gastrointestinal: Reports systems reviewed and no addt'l complaints, except as documented; Denies abdominal pain Genitourinary Genitourinary: Reports systems reviewed and no addt'l complaints, except as documented, contractions Details: present (irregular) and movement Details: present; Denies dysuria or genital lesions Musculoskeletal Musculoskeletal: Reports systems reviewed and no addt'l complaints, except as documented Neurologic Neurologic: Reports systems reviewed and no addt'l complaints, except as documented Endocrine Endocrinology: Reports systems reviewed and no addt'l complaints, except as documented Vital Signs Vital Signs Vital Signs: 01/25/24 22:07 01/25/24 22:07 01/25/24 22:08 Temperature Temperature Source Pulse Rate 88 Respiratory Rate Blood Pressure 113/67 BP Systolic 113 BP Diastolic 67 Pulse Ox 99 01/25/24 22:08 01/25/24 22:09 01/25/24 22:09 Temperature Temperature Source Temporal Pulse Rate 85 Respiratory Rate 14 Blood Pressure BP Systolic BP Diastolic Pulse Ox 01/25/24 22:09 Temperature 98.0 F Temperature Source Pulse Rate Respiratory Rate Blood Pressure BP Systolic BP Diastolic Pulse Ox Weight Weight: 189 lb Body Mass Index (BMI) 31.4 Physical Exam Const alert, oriented x3, no apparent distress and healthy appearing HEENT normocephalic and moist oral mucous membranes Head and Scalp: atraumatic Neck full ROM, no lymphadenopathy, supple and thyroid normal General: trachea midline Lymph Lymphatic: no lymphadenopathy noted Chest inspection of chest normal Resp normal respiratory effort Cardio regular rate GI normal to inspection, nondistended, normoactive bowel sounds, soft to palpation and non-tender Inspection: gravid external exam normal Manual OB Exam: estimated gestational size appropriate, presentation cephalic, dilated, effaced and station Extremity normal to inspection General Extremity: Negative for edema Skin no rashes or lesions noted Neuro no focal motor deficits and deep tendon reflexes 2+ bilaterally Motor Exam: strength 5/5 throughout and clonus absent Psych mental status grossly normal Labs Labs Labs: Blood Type A NEGATIVE Antibody Screen NEGATIVE Hct 35.0 % (37-47) L Hgb 11.1 g/dL (12.0-15.0) L Obstetrics Ultrasound Syphilis Total Ab Non-reactive Rubella IgG Antibody 414.9 IU/mL Hep Bs Antigen Non-Reactive (Nonreactive) Hepatitis C Antibody Non-Reactive (Nonreactive) Hepatitis C Ab (EIA) 0.1 s/co ratio (0.0-0.9) Chlamydia DNA (KIRSTEN) Negative (Negative) N.gonorrhoeae DNA (KIRSTEN) Negative (Negative) HIV 1&2 Antibody Non-Reactive (Nonreactive) Glucose 1 Hr 50 gm 73 mg/dL (70-140) Group B Strep DNA Negative (Negative) Rhogam given: Yes Assessment & Plan (1) Anemia in preg-unspec: QUALIFIERS: Trimester: third trimester Qualified Code(s): O99.013 - Anemia complicating , third trimester COMMENT: start FE (2) Pyelectasis of fetus on ultrasound: COMMENT: sched US [facility] 11/24-normal US, 4mm bilateral, patient declines further ultrasound (3) Rh negative status during : QUALIFIERS: Trimester: third trimester Qualified Code(s): O26.893 - Other specified related conditions, third trimester; Z67.91 - Unspecified blood type, Rh negative COMMENT: Rhogam @ 28 weeks & PRN Bleeding FOB is positive blood type (4) Varicose vein of leg: COMMENT: right leg (5) Supervision of high-risk : QUALIFIERS: Trimester: third trimester Qualified Code(s): O09.93 - Supervision of high risk , unspecified, third trimester COMMENT: PRR , SKYLAR 01/23/23 Ramona Benjamin Mahlon Pierre (6) : QUALIFIERS: Weeks of gestation: 38 weeks Qualified Code(s): Z3A.38 - 38 weeks gestation of COMMENT: GBS neg, discussed genetic & carrier testing. anatomy reviewed. (7) (vaginal after ): COMMENT: 03/06/20 Dr. Meehan, 2021 [facility] (8) History of delivery: (9) Active labor at term: PLAN: Plan trial of labor- exp managment. arom clear fluid
[2024-01-26 01:58] LABS: Syphilis Antibodies Non-reactive
[2024-01-26 02:21] LABS: Hepatitis B Surface Antigen Non-Reactive (Nonreactive)
[2024-01-26] MEDS: Oxytocin 15 Units/NS 250ml 15 UNITS/250 ML IV.SOLN 334 UNITS IV (02:54)
--- NOTE | 2024-01-26 02:59 | OP.PCM_ITS ---
Assessment & Plan (1) Active labor at term: (2) Anemia in preg-unspec: QUALIFIERS: Trimester: third trimester Qualified Code(s): O99.013 - Anemia complicating , third trimester COMMENT: start FE (3) Pyelectasis of fetus on ultrasound: COMMENT: sched US [facility] 11/24-normal US, 4mm bilateral, patient declines further ultrasound (4) Rh negative status during : QUALIFIERS: Trimester: third trimester Qualified Code(s): O26.893 - Other specified related conditions, third trimester; Z67.91 - Unspecified blood type, Rh negative COMMENT: Rhogam @ 28 weeks & PRN Bleeding FOB is positive blood type (5) Varicose vein of leg: COMMENT: right leg (6) Supervision of high-risk : QUALIFIERS: Trimester: third trimester Qualified Code(s): O09.93 - Supervision of high risk , unspecified, third trimester COMMENT: PRR , SKYLAR 01/23/23 Ramona Benjamin Mahlon Pierre (7) : QUALIFIERS: Weeks of gestation: 38 weeks Qualified Code(s): Z3A.38 - 38 weeks gestation of COMMENT: GBS neg, discussed genetic & carrier testing. anatomy reviewed. (8) (vaginal after ): COMMENT: 03/06/20 Dr. Meehan, 2021 [facility] (9) History of delivery: (10) Vaginal after : COMMENT: 41 boy Maternal Data Information SKYLAR Calculator Estimated Delivery Date Method Current WG Current Estimate 01/24/24 LMP (Certain) 40w 2d Vaginal Delivery Operative Information Date of Procedure: 01/26/24 Pre-Operative Diagnosis: see a/p diagnoses Post-Operative Diagnosis: same Surgery / Procedure Performed: Type of Anesthesia: None Special Medications: none Estimated Blood Loss: 200 Fluids Replaced: crystalloid Findings Description of Procedure: Patient began pushing and delivered the head in the REFUGIO presentation. The head was delivered atraumatically and a loose nuchal cord ?1 was identified and the delivered through without complication. The anterior and posterior shoulders delivered without complication followed by the rest of the and the infant was placed on the maternal abdomen. Delayed cord clamping was employed for approximately 60 seconds. Cord was clamped and cut and gentle traction was applied to the cord and the placenta delivered spontaneously immediately following it was noted to be intact with three-vessel cord. The per ineum and vagina were inspected and noted to have no laceration. EBL was 200 cc. Patient and tolerated delivery well. Amniotic Fluid Description: Clear Placental Delivery Description: Spontaneous Placenta Disposition: [facility] Cord Vessel Description: 3 Vessels Cord Entanglement: None Delayed Cord Clamping: Yes Post Vaginal Delivery Medications Given After Delivery: IV Pitocin Episiotomy Description: None Complication Complications: None Multi Select Codes Urinary/Genital Urinary/Genital CPT Codes: 93620 delivery [facility]
--- NOTE | 2024-01-26 03:01 | DCINST_ITS ---
Discharge Instructions Diet Discharge Diet: No restrictions Activity Discharge Activity: Return to Normal Activity, May Not Drive (while taking narcotic pain medications.) and May Shower May resume sexual activity in: 4-6 weeks Dressing / Incision Call your doctor if your incision/area has: Continuous Slow Oozing, Sudden Increased Bleeding, Increased Pain/ Swelling, Increased Redness and Foul Smelling Discharge Follow Up Care Please Follow Up With: Sepideh Trotter MD When: Call [phone] to make an appointment with your doctor in 6 weeks. If you had elevated blood pressure or 4th degree laceration, you will need to be seen in 2 weeks. Test Results: Test results from this visit will be discussed in further detail at your follow- up appointment, if applicable. Discharge Plan Admission Admit Date/Time: 01/26/24 00:48 Attending Provider: Sepideh Trotter Primary Care Provider: Shlomo Ferris Discharge Orders/Prescriptions Prescriptions: No Action Prenatabs FA 1 TABLET tablet 1 tab PO DAILY Referrals / Follow Up: Shlomo Ferris PA-C [Primary Care Provider] - Disposition Disposition (needs filled in before D/C Order can be placed): Home, Self Care
[2024-01-26 03:02] LABS: Hepatitis C Antibody Non-Reactive (Nonreactive)
[2024-01-26] MEDS: Oxytocin 15 Units/NS 250ml 15 UNITS/250 ML IV.SOLN 83 UNITS IV (03:40)
[2024-01-26] MEDS: Acetaminophen 500 MG Tablet 1000 MG PO ×2 (04:24→22:41)
[2024-01-26] MEDS: Oxytocin 10 UNITS/ML Vial IM (05:35)
[2024-01-26] MEDS: Rho(D) Immune Globulin 300 MCG (1500 Unit) Syringe IV (10:51)
[2024-01-26] MEDS: Naproxen 500 MG Tablet PO (15:25)
[2024-01-27 00:05] VITALS: BP 105/62; PULSE 80; RESP 15; TEMP 36.3; O2SAT 100
[2024-01-27 03:35] VITALS: BP 107/60; PULSE 81; RESP 14; TEMP 36.4; O2SAT 99
--- NOTE | 2024-01-27 08:31 | PCM.PN.OB ---
Subjective Subjective Patient doing well without complaints. Tolerating PO. Ambulating and voiding without difficulty. feeding well. Denies chest pain, shortness of breath, calf pain/swelling, fevers, chills, lightheadedness. Objective Data Objective Data Vital Signs: Vital Signs Temp Pulse Resp BP Pulse Ox O2 Del Method 97.5 F L 81 14 107/60 99 Room Air 01/27/24 03:35 01/27/24 03:35 01/27/24 03:35 01/27/24 03:35 01/27/24 03:35 01/27/24 03:35 Oxygen Delivery Method Room Air Weight: 189 lb Body Mass Index (BMI) 31.4 Intake & Output: Intake and Output for Last 24 Hours 01/25/24 01/26/24 01/27/24 23:59 23:59 23:59 Intake Total 485.52 / 485.52 Output Total 900 / 900 Balance -414.48 / -414.48 Lab / Micro Data 01/26/24 01:10 Labs: Laboratory Results - last 24 hr 01/26/24 07:50: Screen NEGATIVE, Baby's Blood Type O POSITIVE, Baby's DSETINEE NEGATIVE ROS Constitutional Constitutional: Reports systems reviewed and no addt'l complaints, except as documented Cardiovascular Cardiovascular: Reports systems reviewed and no addt'l complaints, except as documented Respiratory/Chest Respiratory/Chest: Reports systems reviewed and no addt'l complaints, except as documented Gastrointestinal Gastrointestinal: Reports systems reviewed and no addt'l complaints, except as documented Physical Exam Const alert, oriented x3 and no apparent distress HEENT Head and Scalp: atraumatic Resp normal respiratory effort GI soft to palpation and non-tender Inspection: incision intact, healing well and drainage (none) Bimanual Exam - Vag & Uterus: uterus non-tender Uterus Palpation: uterus fundus firm (below Umbilicus) Assessment & Plan (1) Vaginal after : COMMENT: SM 40 boy PLAN: Plan s/p PPD # 1 1. routine post delivery care 2. breast feeding- support given 3. rh positive 4. rubella immune
[2024-01-27 08:36] VITALS: BP 113/64; PULSE 74; RESP 18; TEMP 36.6; O2SAT 100
== END 2024-01-27 10:00 | disposition home or self-care (01) | DRG 807 ==
LOC: WPOUT 09:00 → WP 09:00
PROVIDERS: Admitting Provider Obstetrics & Gynecology; PCP Physician Assistant; Referring Provider Obstetrics & Gynecology; Visit Provider Obstetrics & Gynecology
DX: O34.211 Maternal care for low transverse scar from previous cesarean delivery (principal); Z37.0 Single live birth; O26.893 Other specified pregnancy related conditions, third trimester; Z67.11 Type A blood, Rh negative; O35.8XX0 Maternal care for other (suspected) fetal abnormality and damage, not applicable or unspecified; O99.02 Anemia complicating childbirth; O69.81X0 Labor and delivery complicated by cord around neck, without compression, not applicable or unspecified; Z3A.38 38 weeks gestation of pregnancy; Z87.59 Personal history of other complications of pregnancy, childbirth and the puerperium
CPT/HCPCS: 59025; 59050; 85025; 85461; 86780; 86803; 86850; 86900; 86901; 87340; 90384; 99221; J7120; G0378; J2790; J2791

== ENCOUNTER → 2025-04-11 | Outpatient (CLI) | payer SELFPAY ==
[2025-04-11 16:36] LABS: Hematocrit 38.0 % (37-47); Hemoglobin 13.3 g/dL (12.0-15.0); Immature Granulocytes Count 0.010 X10^3/uL (0.0-0.0); Mean Corp Hgb Conc 35.0 g/dL (32-36); Mean Corpuscular Volume 84.1 fL (81-99); Mean Platelet Vol. 10.6 fl (6.2-12.0); NRBC Flagged by Analyzer 0 % (0-5); Platelet Count 159 K/mm3 (150-450); RBC Distribution Width CV 12.7 % (11.6-14.6); RBC Distribution Width SD 38.4 fl (35.1-43.9); Red Blood Count 4.52 M/mm3 (4.2-5.4); White Blood Count 4.8 K/mm3 (4.4-11.0)
[2025-04-11 17:31] LABS: HIV Nonreactive (Nonreactive); Hepatitis B Surface Antigen Nonreactive (Nonreactive); Hepatitis C Antibody Nonreactive (Nonreactive); Syphilis Antibodies Nonreactive (Nonreactive)
[2025-04-13 21:07] LABS: Chlamydia By Nucleic Acid AMP Negative (Negative); Gonococcus By Nucleic Acid AMP Negative (Negative)
== END | disposition home or self-care (01) ==
PROVIDERS: PCP Physician Assistant; Referring Provider Obstetrics & Gynecology; Visit Provider Obstetrics & Gynecology
DX: O99.210 Obesity complicating pregnancy, unspecified trimester (principal); Z3A.00 Weeks of gestation of pregnancy not specified; Z12.4 Encounter for screening for malignant neoplasm of cervix
CPT/HCPCS: 36415; 83036; 85025; 86703; 86762; 86780; 86803; 86850; 86900; 86901; 87086; 87088; 87340; 87491; 87591; 88175; G0145

== ENCOUNTER → 2025-06-15 | Outpatient (CLI) | payer SELFPAY ==
--- NOTE | 2025-06-15 12:35 | US_ITS ---
PROCEDURE: OB ANATOMY W/ TRANSVAGINAL 06/15/2025 REASON FOR EXAM: ANATOMY SCAN TECHNIQUE: Procedure Code: USOBANATVAG Modality: US Procedure: OB ANATOMY W/ TRANSVAGINAL COMPARISON: None. FINDINGS FETUS: There is a single living intrauterine gestation. POSITION: position is breech/variable. HEART RATE: The heart rate is 146 BPM and regular. BIOMETRICS: Based on composite biometry, the composite estimated gestational age by ultrasound is 20 weeks 6 days. LMP gestational age: 20 weeks 4 days LMP SKLYAR: October 29, 2025 Sonographic gestational age: 20 weeks 6 days Sonographic SKYLAR: October 27, 2025 ANATOMIC SURVEY: No gross anatomic abnormality is identified, including intracranial structures, nose/lips, face/orbits, profile, 4 chamber heart, diaphragm, fluid-filled stomach and urinary bladder, spine, 3-vessel cord, cord insertion, and extremities. Renal pelvic dilation bilaterally with AP diameters of 8.0 mm. PLACENTA: The placenta is fundal with central cord insertion. Grade 0. No demonstrated evidence of previa or abruption. The inferior placental margin terminates 5.3 cm from the internal cervical os. AMNIOTIC FLUID: Within normal limits. Maximum vertical pocket (MVP) measuring 4.5cm. CERVIX: Long and closed measuring 5.3cm in length. Unremarkable as visualized. SONOGRAPHIC MEASUREMENTS: Bi-Parietal Diameter (BPD): 5.1 cm; 21 weeks 2 days Head Circumference (HC): 19.0 cm; 21 weeks 2 days Abdominal Circumference (AC): 16.3 cm; 21 weeks 2 days Femur Length (FL): 3.3 cm; 20 weeks 2 days Estimated weight: 391 grams +/-59 grams (14 oz) EFW percentile: 66.6 % US/OB Anatomy w/ Transvaginal IMPRESSION: 1. Single living intrauterine gestation estimated at 20 weeks 6 days by today's ultrasound criteria. Size equals dates. 2. Bilateral pyelectasis with renal pelvis diameters of 8.0 mm. Attenti on on follow-up imaging. Reading Location: [id number]
== END | disposition home or self-care (01) ==
PROVIDERS: PCP Physician Assistant; Referring Provider Advanced Practice Midwife; Visit Provider Advanced Practice Midwife
DX: O09.92 Supervision of high risk pregnancy, unspecified, second trimester (principal); Z36.2 Encounter for other antenatal screening follow-up; Z3A.16 16 weeks gestation of pregnancy
CPT/HCPCS: 76805; 76817